=== PATIENT | female | born 1940 | race Caucasian/White ===

== ENCOUNTER 2018-05-02 19:23 | Emergency (ER) | payer MEDICARE, OTHER, SELFPAY ==
[2018-05-02 19:24] VITALS: BP 160/74; PULSE 102; RESP 18; TEMP 36.6; O2SAT 97; BMI 30.9
--- NOTE | 2018-05-02 19:40 | EKG12_ITS ---
Test Reason : Blood Pressure : / mmHG Vent. Rate : 106 BPM Atrial Rate : 106 BPM P-R Int : 130 ms QRS Dur : 086 ms QT Int : 368 ms P-R-T Axes : 045 -04 062 degrees QTc Int : 488 ms Sinus tachycardia with frequent Premature ventricular complexes Septal infarct , age undetermined Abnormal ECG Confirmed by MARVIN BLOCK, TAMIKO ([id number]), slot editor CASEY TUTTLE ([id number]) on 05/07/2018 5:08:33 PM Referred By: CRISTIAN Confirmed By:TAMIKO WONG MD
--- NOTE | 2018-05-02 19:47 | US_ITS ---
STUDY: VENOUS DOPPLER ULTRASOUND - BILATERAL LOWER EXTREMITIES REASON FOR EXAM: Female, 77 years old. Right lower extremity edema. TECHNIQUE: Ultrasound evaluation of the deep vein system to include dan-scale imaging and compression was performed. Dan-scale imaging and Doppler sonographic evaluation, including duplex spectral analysis and qualitative color flow sonography, was performed. COMPARISON: None. FINDINGS: RIGHT LEG Common Femoral Vein: Normal compression, spontaneity and augmentation. Normal color Doppler. Common Femoral Vein/Greater Saphenous Junction: Normal compression, spontaneity and augmentation. Normal color Doppler. Femoral Proximal: Normal compression, spontaneity and augmentation. Normal color Doppler. Femoral Middle: Normal compression, spontaneity and augmentation. Normal color Doppler. Femoral Distal: Normal compression, spontaneity and augmentation. Normal color Doppler. Popliteal Vein: Normal compression, spontaneity and augmentation. Normal color Doppler. Posterior Tibial Vein: Normal compression. Peroneal Vein: Normal compression. LEFT LEG Common Femoral Vein: Normal compression, spontaneity and augmentation. Normal color Doppler. Common Femoral Vein/Greater Saphenous Junction: Normal compression, spontaneity and augmentation. Normal color Doppler. Femoral Proximal: Normal compression, spontaneity and augmentation. Normal color Doppler. Femoral Middle: Normal compression, spontaneity and augmentation. Normal color Doppler. Femoral Distal: Normal compression, spontaneity and augmentation. Normal color Doppler. Popliteal Vein: Normal compression, spontaneity and augmentation. Normal color Doppler. Posterior Tibial Vein: Normal compression. Peroneal Vein: Normal compression US/Venous Duplex Imag/Carlton Extrem IMPRESSION: No demonstrated deep vein thrombosis. Electronically Signed: Corinne Juarez MD at 20:54 EST Tel , Service support ,
[2018-05-02 20:00] LABS: Absolute Lymphocyte Count 1.43 X10^3/ul (0.83-4.51); Absolute Neutrophil Count 2.3 X10^3/uL (2.0-7.7); Basophil# 0.07 X10^3/uL; Basophil% 1.5 % (0-1); Eosinophil# 0.17 X10^3/uL; Eosinophils% 3.7 % (0-5); Hematocrit 41.7 % (37-47); Hemoglobin 13.7 g/dl (12.0-15.0); Lymphocyte # 1.43 X10^3/ul (4.0); Lymphocyte % 31.4 % (19-41); Mean Corp Hgb Conc 32.9 g/gl (32-36); Mean Corpuscular Hgb 31.9 pg (27.0-32.0); Mean Corpuscular Volume 97.2 fL (81-99); Mean Platelet Vol. 10.8 fl (6.2-12.0); Monocyte# 0.54 X10^3/uL; Monocyte% 11.9 % (0-10); Neutrophil # 2.33 X10^3/uL (2.7-7.7); Neutrophil % 51.3 % (47-70); Platelet Count 188 K/mm3 (150-450); RBC Distribution Width CV 15.1 % (11.6-14.6); Red Blood Count 4.29 M/mm3 (4.2-5.4); White Blood Count 4.6 K/mm3 (4.4-11.0)
[2018-05-02 20:01] LABS: POSITIVE COUNT NO; POSITIVE DIFFERENTIAL NO; POSITIVE MORPHOLOGY NO
[2018-05-02 20:22] LABS: Anion Gap 9 (5-15); BUN 12 mg/dL (7-18); Calcium,Total 8.9 mg/dL (8.5-10.1); Chloride 107 mmol/L (98-107); Creatinine, Serum 0.52 mg/dL (0.55-1.02); EST Glomerular Filtration Rate 121 mL/min (>60); Est Glom Filt Rate - Afr Amer 147 mL/min (>60); Estimated Creatinine Clearance 40.21 ml/min; Glucose 94 mg/dL (74-106); Potassium 4.3 mmol/L (3.5-5.1); Sodium Level 142 mmol/L (136-145)
[2018-05-02 20:27] LABS: BNP,B-Type NATRIURETIC PEPTIDE 133.8 pg/mL (0-100)
--- NOTE | 2018-05-02 21:20 | ED.VISSUMM ---
- ER Visit Summary Date of Service: 05/02/18 Chief Complaint: [Leg swelling] History of Present Illness: The patient is a 77 F [presents the emergency room with complaint of swelling in her legs that started 2 or 3 days ago. Patient states that she chronically has some swelling in her legs she is noticed increased swelling to the right leg 2 or 3 days ago. Patient was advised by the nurse at her physician's office to come in and have it evaluated. Patient denies recent travel or surgery. She denies any chest pain or shortness of breath. She denies any trauma to the leg. Patient does have a history of MS. Patient states that she is been urinating normally.] Physical Examination: [HEENT-PERRLA, EOMI. Cranial nerves II through XII grossly intact. TMs clear. Mucous membranes moist. No adenopathy. Cardiovascular-regular and slightly tachycardic. Patient has a 2 out of 6 systolic ejection murmur. Patient has occasional ectopy noted. Lungs-clear to auscultation, chest wall stable without crepitus or subcu emphysema Abdomen-normoactive bowel sounds, soft, nontender, no rebound or rigidity, no peritoneal signs. Extremities-intact ?4, normal range of motion, normal pulses, atraumatic. Patient does have +3 edema of the right lower extremity to about mid thigh and also +2 edema of the left lower extremity just below the knee. Patient has no evidence of cellulitis.] Test Results: [EKG obtained arrival showed a sinus tachycardia with a ventricular rate of 106 bpm with occasional PVCs. CBC with differential showed a white count of 4.6, hemoglobin 13.7, hematocrit 42, platelets 188. Chemistries unremarkable. BUN was 12 and creatinine 0.52. Troponin is less than 0.015. BNP was 133. Venous Dopplers of both lower extremities were negative for DVT.] Emergency Department Course and Treatment: [] Treatment Plan: [Patient advised to follow-up with primary care physician within next 3-5 days] Disposition: [Discharged home in stable condition] Impression: [Leg edema suspect venous insufficiency] This note was generated with [employer] software. It may contain incorrect words, spelling, and punctuation that were not noted in review of the chart prior to signing ED Disposition - Plan for ED Patient: Referrals: Noemy Hoskins MD [Primary Care Provider] -
--- NOTE | 2018-05-02 21:22 | ED.DEP ---
ED Disposition - Plan for ED Patient: Instructions: ED Leg Swelling Bilateral Referrals: Noemy Hoskins MD [Primary Care Provider] - 3-5 Days
[2018-05-02 21:38] VITALS: BP 152/95; PULSE 110; RESP 18; O2SAT 96
== END 2018-05-02 21:39 | disposition home or self-care (01) ==
LOC: ED 20:43
PROVIDERS: Emergency Provider Emergency Medicine; Family Provider Internal Medicine; PCP Internal Medicine
DX: R60.0 Localized edema (principal); G35 Multiple sclerosis; Z79.899 Other long term (current) drug therapy
CPT/HCPCS: 80048; 83880; 84484; 85025; 93005; 93970; 99284; A4216

== ENCOUNTER → 2018-05-11 07:13 | Outpatient (CLI) | payer MEDICARE, OTHER, SELFPAY ==
[2018-05-02 19:24] VITALS: BMI 30.9
--- NOTE | 2018-05-11 07:21 | BI_ITS ---
MAMMOGRAPHY - BILATERAL SCREENING REASON FOR EXAM: Female, 77 years old. Routine annual screening examination. PERTINENT HISTORY: Non-contributory. TECHNIQUE: Digital bilateral breast alvarado (3D mammographic acquisition) in the CC and MLO projections. 2-D mediolateral oblique (MLO) and craniocaudad (CC) views of both breasts were obtained. CAD: Full Field Digital Mammography with Computer Added Detection was performed. COMPARISON: Comparison is made with prior study dated December 05, 2016 and December 01, 2015. FINDINGS: Breast Composition: There are scattered areas of fibroglandular density. There are no dominant masses or suspicious calcifications. No other significant abnormalities are identified. There has been no significant change since the prior study. BI/SCREENING MAMM (CAD), BILAT IMPRESSION: Stable bilateral screening mammogram. Yearly follow-up mammogram recommended. (A) ASSESSMENT CATEGORY: BIRADS Category 1: Negative. A letter regarding these results will be sent to the patient by the facility within 30 days. Approximately 10% of breast cancers are not detected by mammography. A normal mammogram should not delay biopsy of a clinically suspicious abnormality. [id number] Electronically Signed: Cisco Wallace, at 10:12 EST , Service support ,
== END ==
PROVIDERS: Family Provider Internal Medicine; PCP Internal Medicine; Visit Provider Internal Medicine
DX: Z12.31 Encounter for screening mammogram for malignant neoplasm of breast (principal)
CPT/HCPCS: 77063; 77067

== ENCOUNTER 2019-01-28 08:43 | Inpatient (IN) | payer MEDICARE, OTHER, SELFPAY ==
[2019-01-28] VITALS (9 sets, daily range): BP systolic 103–151; BP diastolic 37–88; PULSE 112–133; RESP 15–20; TEMP 36.6–37.7; O2SAT 92–98; BMI 30.5; BMI 30.4
--- NOTE | 2019-01-28 09:00 | ED.DCSUM_ITS ---
History of Present Illness Chief Complaint: Other, Pain/Inj Informant: Patient, Family Onset: Yesterday Current Severity: Moderate Maximum Severity: Moderate Narrative: Patient has a history of multiple sclerosis. She has left facial droop right arm paralysis and right leg paralysis. These are chronic. However starting yesterday she has been unable to ambulate, she normally gets around with a walker but now her left leg is weak and her right leg is weaker than normal. She has no recent fever chills dysuria cough or congestion no recent head injury, she is complaining of pain everywhere, however more specifically it is in her legs. She tells me this is consistent with an MS flare. Past Medical History - Allergies and Home Meds Allergies/Adverse Reactions: Allergies aspirin Adverse Reaction (Verified 01/28/19 08:47) Other pt states she is not to take aspirin due to being on methotrexate Past Medical History: - - Multiple sclerosis Lives: Spouse/ Significant Other Smoking Status: Never smoker Review of Systems All systems negative except as indicated General: Denies: Fever Eyes: Denies: Visual changes - bilaterally ENT: Reports: - - Dry mouth. Denies: Rhinorrhea, Sore throat Cardiovascular: Denies: Chest pain, Palpitations Respiratory: Denies: Dyspnea, Cough Gastrointestinal: Denies: Abdominal pain, Nausea Musculoskeletal: Reports: Myalgias, Extremity Pain. Denies: Neck pain, Back pain Skin: Denies: Rash, Abscess Neurological: Reports: Weakness, Parasthesia. Denies: Headache Endocrine: Denies: Polyuria, Polydipsia Hematologic: Denies: Easy bruising Allergy: Denies: Uticaria Physical Exam Vital Signs/Narrative: Vital Signs Temp Pulse Resp BP Pulse Ox 01/28/19 08:43 99.0 F 126 H 20 H 139/47 H 93 General: - - She appears in some distress she is oriented x3 but confused about minor details. Head: Normocephalic Eyes: Negative for: Pale conjunctiva ENT: Dry mucous membranes, - - Left facial droop Neck: Supple Cardiovascular: Regular rate, Regular rhythm Respiratory: No distress, CTA bilaterally Abdomen: Soft, Nontender Back: Nontender, Normal Inspection Extremities: - - Lateral lower extremity edema, she has minimal movement in her l right lower extremity but she does have some movement in the left lower extremity although she cannot hold it against gravity. Neurological: Alert, - - Left facial droop, right arm and right leg weakness as well as left leg weakness. Psychological: Normal affect Diagnostic/Tx/Re-eval Chest X-Ray - ED: 1 View - Medical Decision Making It is clear that the patient has an infectious etiology to her symptoms, she has leukocytosis a urinary tract infection tachycardia and lactic acidosis. She meets criteria for severe sepsis. I discussed the patient with neurology at [facility], no further treatment is recommended for her MS. The recommendation is to treat her sepsis. I will admit to the hospitalist. Severe sepsis protocol was followed by me as far as orders. Admit stable condition - Critical Care Time Critical care time (excluding procedures): 30-74 minutes, Discussing w/Patient &/or Family/Screen Tender Helper, Discussing w/Consultants, Performing Direct Patient Care at Bedside ED Disposition - Plan for ED Patient: Disposition: Acute Care Hospital [facility] Diagnosis: Severe sepsis, UTI (urinary tract infection)
--- NOTE | 2019-01-28 09:00 | RAD_ITS ---
STUDY: X-RAY CHEST REASON FOR EXAM: Female, 78 years old. Chest pain/shortness of breath. TECHNIQUE: Single AP portable view of the chest. COMPARISON: None. FINDINGS: EKG electrodes are seen. Minimal increased markings at the left lung base suggestive of atelectasis. There is no demonstrated pleural abnormality. There is borderline cardiomegaly. Normal mediastinum and terri. Normal visualized pulmonary arteries. There is atherosclerotic calcification of the aortic arch with tortuosity. There are diffuse degenerative changes of the visualized thoracic spine. There is degenerative osteoarthritis of the bilateral shoulders. There is no demonstrated abnormality of the visualized soft tissue structures of the upper abdomen. RAD/Chest 1 View (Portable) IMPRESSION: Borderline cardiomegaly. Minimal increased markings at the left lung base suggestive of atelectasis. Electronically Signed: Cisco Wallace, at 9:28 EST , Service support ,
[2019-01-28 09:05] LABS: Absolute Lymphocyte Count 0.42 X10^3/uL (0.83-4.51); Basophil# 0.07 X10^3/uL; Basophil% 0.4 % (0-1); Differential Indicated SCAN CRITERIA MET; Eosinophil# 0.04 X10^3/uL; Eosinophils% 0.2 % (0-5); Hematocrit 41.5 % (37-47); Hemoglobin 13.7 g/dL (12.0-15.0); Lymphocyte # 0.42 X10^3/ul (4.0); Lymphocyte % 2.6 % (19-41); Mean Corpuscular Hgb 32.9 pg (27.0-32.0); Mean Corpuscular Volume 99.5 fL (81-99); Mean Platelet Vol. 10.9 fl (6.2-12.0); Monocyte# 1.38 X10^3/uL; Monocyte% 8.6 % (0-10); NRBC Flagged by Analyzer 0 % (0-5); Neutrophil # 14.03 X10^3/uL (2.7-7.7); POSITIVE DIFFERENTIAL YES; Platelet Count 149 K/mm3 (150-450); RBC Distribution Width CV 15.7 % (11.6-14.6); RBC Distribution Width SD 57.4 fl (35.1-43.9); Red Blood Count 4.17 M/mm3 (4.2-5.4); White Blood Count 16.1 K/mm3 (4.4-11.0)
[2019-01-28 09:22] LABS: AST(SGOT) 27 U/L (15-37); Alanine Aminotransfer ALT/SGPT 23 U/L (13-56); Albumin, Serum 3.6 g/dL (3.2-5.0); Alkaline Phosphatase 81 U/L (45-117); Anion Gap 8 (5-15); BUN 31 mg/dL (7-18); BUN/Creat Ratio 25.2 RATIO (10-20); Calcium,Total 8.9 mg/dL (8.5-10.1); Chloride 106 mmol/L (98-107); Creatinine, Serum 1.23 mg/dL (0.55-1.02); EST Glomerular Filtration Rate 45 mL/min (>60); Est Glom Filt Rate - Afr Amer 55 mL/min (>60); Globulin 3.6 g/dL (2.2-4.2); Glucose 100 mg/dL (74-106); Potassium 3.7 mmol/L (3.5-5.1); Protein, Total 7.2 g/dL (6.4-8.2); Sodium Level 141 mmol/L (136-145)
[2019-01-28 10:02] LABS: Mucous, Urine 0 SEEN /hpf (<or=2+)
[2019-01-28 10:08] LABS: Color, Urine Amber (Yellow); Glucose, Dipstick Normal (Normal); Ketone-Dipstick 5 mg/dl (Negative); Leukocyte Esterase-Dipstick 100 /ul (Negative); Nitrite-Dipstick Negative (Negative); Occult Blood-Urine 250 /ul (Negative); Protein-Dipstick 100 mg/dl (Negative); Specific Gravity, Urine 1.015 (1.002-1.030); Urine Bilirubin Dipstick Negative (Negative); Urine Clarity Sl. Cloudy (Clear); Urine Urobilinogen Normal (Normal)
[2019-01-28 10:11] LABS: Red Blood Cells-Urine 25-50 SEEN /hpf (0-5); White Blood Cells 10-25 SEEN /hpf (0-5)
[2019-01-28 10:12] LABS: Bacteria 2+ /hpf (None Seen); Squamous Epithelial Cells - UA 0-5 SEEN /hpf (5-10)
[2019-01-28] MEDS: 0.9% Normal Saline 1,000 ML 1000 ML IV (11:05)
[2019-01-28] MEDS: 0.9% Normal Saline 1,000 ML 999 ML IV ×3 (11:05→13:53)
[2019-01-28 11:18] LABS: Lactic Acid 2.2 mmol/L (0.4-2.0)
--- NOTE | 2019-01-28 11:22 | ED.RN ---
lactic acid 2.2 called from the lab dr rivera aware
--- NOTE | 2019-01-28 11:25 | HP.PCM_ITS ---
History of Present Illness Date of Admission: 01/28/19 Chief Complaint: Generalized pain The patient is a 78 year old F with a past medical history significant for multiple sclerosis. She was admitted through the ED on 01/28/2019 with a complaint of generalized pain which started a few days ago she had associated weakness. She does have chronic right-sided weakness. She however felt generally weaker than usual. Admitted to having burning with urination and frequent urination but denied any fever or chills, any nausea vomiting or diarrhea. Review of systems is otherwise negative. She came into the ED where vitals were significant for temperature of 99.5 with pulse rate of 124 and respiratory rate of 17. Blood pressure was 148/55. Chemistry showed creatinine of 1.23 and lactic acid of 2.2 and white cell count was 16. UA was positive for UTI and chest x-ray showed borderline cardiomegaly with minimal increased markings of the left lung base suggestive of atelectasis. She has been admitted to be managed for sepsis due to UTI. [] Past Medical History Allergies aspirin Adverse Reaction (Verified 01/28/19 08:47) Other pt states she is not to take aspirin due to being on methotrexate Home Medications: Ambulatory Orders Medication Instructions Recorded Calcium Carbonate/Vitamin D3 1 tab PO DAILY 05/02/18 [Calcium 600 + Vit D Tablet] Cholecalciferol (Vitamin D3) 2,000 unit PO DAILY 05/02/18 [Vitamin D3] Methotrexate Sodium [Methotrexate] 6 tab PO FLORES 05/02/18 [place]-3 Fatty Acids [Fish Oil] 500 mg PO DAILY 05/02/18 Vit C/Vit E AC/Lut/Copper/Zinc 2 each PO BID 05/02/18 [Preservision Lutein Softgel] Cranberry Fruit [Cranberry] 400 mg PO DAILY 01/28/19 Psychiatric History: No pertinent psych hx SUPERVISOR ROVING History: No pertinent SUPERVISOR ROVING history Lives: Spouse/ Significant Other Smoking Status: Never smoker Alcohol: None Drugs: None - *Family History Maternal History Items: No pertinent history Review of Systems Constitutional: Reports: Malaise, Weakness, Fatigue. Denies: Chills, Fever, Weight Change Eyes: Denies: Blurred vision HEENT: Denies: Head Aches, Sinus Congestion, Sinus Drainage Cardiovascular: Denies: Chest Pain, Palpitations Respiratory: Denies: Cough, Shortness of breath at rest, Sputum production Gastrointestinal: Denies: Abdominal Pain, Nausea, Vomiting Genitourinary: Reports: Dysuria, Frequency. Denies: Incontinence, Urgency Musculoskeletal: Denies: Joint Pain, Joint Tenderness Skin: Denies: Rash, Wounds Neurological: Reports: Focal weakness - right sided weakness, which is chronic. Denies: Numbness, Tingling Psychiatric: Denies: Anxiety, Depression, Homicidal Ideations, Suicidal Ideations Hematologic/ Lymphatic: Denies: Easy Bruising, Easy Bleeding VTE Information - Inpt Only VTE Present on Admission: No VTE Pharm Prophylaxis ordered?: Yes Patient Problems: Active and Suspected Problems Severe sepsis (Acute) UTI (urinary tract infection) (Acute) - Physical Exam Vitals/I&O's: Vital Signs Temp Pulse Resp BP Pulse Ox 99.5 F H 124 H 17 148/55 H 94 01/28/19 11:14 01/28/19 11:14 01/28/19 11:14 01/28/19 11:14 01/28/19 11:14 Oxygen Delivery Method Room Air Weight: 178 lb 2.136 oz Body Mass Index (BMI) 30.5 General: Alert, Oriented x3, Cooperative, No apparent distress HEENT: Atraumatic, PERRLA, EOMI, Normocephalic Oral: Dry Mucosa Neck: Supple, No JVD, Negative Carotid Bruits Lungs: Clear to auscultation, Normal air movement, No rhonchi, No wheeze Cardiovascular: Regular rate, Regular Rhythm, Normal S1, Normal S2, No murmurs Abdomen: Bowel Sounds Present, Soft, Non Tender, Non-Distended, No Hepato- splenomegaly Extremities: No clubbing, No cyanosis, Capillary Refill Less than 3 Seconds, - - bilateral LE edema, R>L, which is chronic Skin: No rashes, No breakdown Musculoskeletal: No Tenderness to Palpation of Joints or Extremities Lymphatic: No Cervical, Supraclavicular, or Inguinal Adenopathy Neurological: Cranial nerves II-XII grossly intact, - - power in RLE and RUE is 1/5; power in LLE is ~ 3/5, power in LUE is 5/5; this is all chronic, from MS Psych/Mental Status: Normal Affect, Appropriate, Alert and oriented to time, place, person, mood and affect Laboratory Results 01/28/19 08:50: WBC 16.1 H, RBC 4.17 L, Hgb 13.7, Hct 41.5, MCV 99.5 H, MCH 32.9 H, MCHC 33.0, RDW Std Deviation 57.4 H, RDW Coeff of Luanne 15.7 H, Plt Count 149 L, MPV 10.9, Immature Gran % (Auto) 1.200 H, Neut % (Auto) 87.0 H, Lymph % (Auto) 2.6 L, Walker % (Auto) 8.6, Eos % (Auto) 0.2, Baso % (Auto) 0.4, Absolute Neuts (auto) 14.0 H, Absolute Lymphs (auto) 0.42 L, Nucleated RBC % 0, Differential Comment COMMENT 01/28/19 08:50: Sodium 141, Potassium 3.7, Chloride 106, Carbon Dioxide 27.0, Anion Gap 8, BUN 31 H, Creatinine 1.23 H, Estim Creat Clear Calc 33.60, Est GFR (MDRD) Af Amer 55 L, Est GFR (MDRD) Non-Af 45 L, BUN/Creatinine Ratio 25.2 H, Glucose 100, Calcium 8.9, Total Bilirubin 1.00, AST 27, ALT 23, Alkaline Phosphatase 81, Troponin I < 0.015, Total Protein 7.2, Albumin 3.6, Globulin 3.6, Albumin/Globulin Ratio 1.0 01/28/19 08:56: Lactic Acid 2.2 H 01/28/19 09:45: Urine Color Allyssa, Urine Clarity Sl. Cloudy, Urine pH 8.0, Ur Specific [place] 1.015, Urine Protein 100 H, Urine Glucose (UA) Normal, Urine Ketones 5 H, Urine Occult Blood 250 H, Urine Nitrite Negative, Urine Bilirubin Negative, Urine Urobilinogen Normal, Ur Leukocyte Esterase 100 H, Urine RBC 25- 50 SEEN, Urine WBC 10-25 SEEN, Ur Squamous Epith Cells 0-5 SEEN, Urine Bacteria 2+, Urine Mucus 0 SEEN Diagnostic Data Chest X-Ray 01/28/19 09:00 IMPRESSION: Borderline cardiomegaly. Minimal increased markings at the left lung base suggestive of atelectasis. Electronically Signed: Cisco Wallace, at 9:28 EST , Service support , Current Medications Sodium Chloride () 1,000 mls @ 999 mls/hr IV .Q1H1M JODY; Protocol Stop: 01/28/19 12:55 Last Admin: 01/28/19 11:05 Dose: 999 mls/hr Documented by: Vancomycin HCl 1,250 mg/ (Sodium Chloride) 275 mls @ 167 mls/hr IV X1 ONE Stop: 01/28/19 12:38 Assessment/Plan All Active Problems Severe sepsis (Acute) UTI (urinary tract infection) (Acute) 78-year-old female admitted with complaint of weakness and found to have sepsis due to UTI. 1. Sepsis due to UTI * admit to PCU with telemetry * SIRS criteria is 2/4 (tachycardia and leucocytosis), with a mild fever of 99.5F * UA : 2+ bacteria and 10-25 wbc; lactic acid was 2.2 * given IV vancomycin in ED; will start on IV ceftriaxone * hydrate with iVF NS * blood and urine cultures * 2. FOZIA: Creatinine is 1.23 with baseline of 0.52. Will hydrate with IV fluid and monitor. 3. Lactic acidosis: Lactic acid was 2.2. Will hydrate with IV fluids and repeat per sepsis protocol. 4. History of multiple sclerosis: * On methotrexate 6 tablets weekly on Sundays. * ED doctor discussed with her neurologist up in [facility], Dr. Garrett. * He recommended that she continue with her current treatment and did not recommend any adjustments to her medication. * patient's neurologic status is at baseline; if it worsens, will consult neurology * DVT prophylaxis: lovenox CODE STATUS: Full code * Patient counseled extensively about different types of CODE STATUS including full code, DNR CCA and DNR CCA. Patient elects to be full code. Total [id number] time 16 minutes. Code Visit Inpatient E&M: 15530 Init Hosp L3 Procedures: 93936 Advncd Care Plan 30 Min
[2019-01-28 14:54] LABS: Reflex Lactate? Y
--- NOTE | 2019-01-28 15:03 | CASEMGMT ---
Patient has advance directives and she is aware they are not on file at [facility]. Keiry PENA MSW
--- NOTE | 2019-01-28 15:04 | CASEMGMT ---
Patient has advance directives and she is aware they are not on file at [facility]. Keiry PENA MSW
[2019-01-28] MEDS: oxyCODONE 5 MG Tablet PO (15:14)
[2019-01-28] MEDS: 0.9% Normal Saline 1,000 ML 150 ML IV ×2 (15:47→22:56)
[2019-01-28] MEDS: Enoxaparin 40 MG/0.4 ML Syringe SC (15:53)
[2019-01-28 19:23] LABS: Reflex Lactate? Y
[2019-01-28] MEDS: Nystatin Powder 15gm Bottle 1 APPLIC TOPICAL (21:12)
[2019-01-28] MEDS: Menthol/Lanolin/Calamine/Znox 113 GM Tube 1 APPLIC TOPICAL (21:12)
[2019-01-28 21:26] LABS: Lactic Acid 1.4 mmol/L (0.4-2.0)
[2019-01-29] VITALS (11 sets, daily range): BP systolic 123–161; BP diastolic 48–76; PULSE 98–118; RESP 18–20; TEMP 36.9–37.6; O2SAT 93–97
[2019-01-29 05:45] LABS: Absolute Lymphocyte Count 0.44 X10^3/uL (0.83-4.51); Absolute Neutrophil Count 7.2 X10^3/uL (2.0-7.7); Basophil# 0.05 X10^3/uL; Basophil% 0.6 % (0-1); Eosinophil# 0.03 X10^3/uL; Eosinophils% 0.4 % (0-5); Hematocrit 33.9 % (37-47); Hemoglobin 11.1 g/dL (12.0-15.0); Lymphocyte # 0.44 X10^3/ul (4.0); Lymphocyte % 5.2 % (19-41); Mean Corp Hgb Conc 32.7 g/dL (32-36); Mean Corpuscular Volume 97.7 fL (81-99); Mean Platelet Vol. 11.2 fl (6.2-12.0); Monocyte# 0.72 X10^3/uL; Monocyte% 8.5 % (0-10); NRBC Flagged by Analyzer 0 % (0-5); Neutrophil # 7.19 X10^3/uL (2.7-7.7); Neutrophil % 84.8 % (47-70); POSITIVE DIFFERENTIAL YES; Platelet Count 125 K/mm3 (150-450); RBC Distribution Width CV 15.4 % (11.6-14.6); RBC Distribution Width SD 54.6 fl (35.1-43.9); Red Blood Count 3.47 M/mm3 (4.2-5.4); White Blood Count 8.5 K/mm3 (4.4-11.0)
[2019-01-29] MEDS: oxyCODONE 5 MG Tablet PO ×2 (05:54→21:52)
[2019-01-29 06:27] LABS: Anion Gap 8 (5-15); BUN 20 mg/dL (7-18); BUN/Creat Ratio 29.2 RATIO (10-20); Calcium,Total 7.3 mg/dL (8.5-10.1); Chloride 107 mmol/L (98-107); Creatinine, Serum 0.68 mg/dL (0.55-1.02); EST Glomerular Filtration Rate 89 mL/min (>60); Est Glom Filt Rate - Afr Amer 107 mL/min (>60); Estimated Creatinine Clearance 41.33 ml/min; Glucose 86 mg/dL (74-106); Potassium 3.3 mmol/L (3.5-5.1); Sodium Level 137 mmol/L (136-145)
[2019-01-29 06:43] LABS: Differential Indicated SCAN CRITERIA MET
[2019-01-29] MEDS: Ondansetron 4 MG/2 ML Vial IV (08:01)
[2019-01-29] MEDS: Acetaminophen 325 MG Tablet 650 MG PO ×2 (08:03→19:57)
[2019-01-29] MEDS: Nystatin Powder 15gm Bottle 1 APPLIC TOPICAL ×2 (08:59→21:52)
[2019-01-29] MEDS: Menthol/Lanolin/Calamine/Znox 113 GM Tube 1 APPLIC TOPICAL ×2 (08:59→21:53)
[2019-01-29] MEDS: Enoxaparin 40 MG/0.4 ML Syringe SC (09:03)
[2019-01-29] MEDS: Multivitamin (Healthy Eyes) Capsule 2 CAP PO ×2 (09:03→21:52)
--- NOTE | 2019-01-29 11:34 | NURSING ---
Was asked by nursing to assess under bilateral breasts for redness. no redness noted under the left breast. there is a small patch of redness noted under the right breast. pt is already getting nystatin powder. did discuss with patient that she can use some cotton cloth such as a pillow case under breasts as needed to assist in keeping areas dry. states that she normally only has issues in the summer time. no need for wound care at this time. continue with the nystatin powder as ordered. can place pillow cases as well if needed.
--- NOTE | 2019-01-29 11:47 | PN_ITS ---
Patient Problems: Active and Suspected Problems Severe sepsis (Acute) UTI (urinary tract infection) (Acute) Subjective: Patient seen and examined. She feels much better today and has no complaints. She denies any fever chills, nausea vomiting though she still admits to mild suprapubic pain with urination. Review of systems otherwise negative. Labs and vitals reviewed. White cell count noted to have trended down to 8.5 from 16.1. Vitals/I&O's: Vital Signs Temp Pulse Resp BP Pulse Ox 98.4 F 100 18 123/48 H 96 01/29/19 08:58 01/29/19 10:59 01/29/19 08:58 01/29/19 08:58 01/29/19 08:58 Oxygen Delivery Method Room Air Weight: 178 lb 2.136 oz Body Mass Index (BMI) 30.4 Intake and Output for Last 24 Hours 01/27/19 01/28/19 01/29/19 23:59 23:59 23:59 Intake Total 6245 / 6245 1205 / 1205 Output Total 400 / 400 350 / 350 Balance 5845 / 5845 855 / 855 General: Alert, Oriented x3, Cooperative, No apparent distress HEENT: Atraumatic, PERRLA, EOMI, Normocephalic Oral: Dry Mucosa Neck: Supple, No JVD, Negative Carotid Bruits Lungs: Clear to auscultation, Normal air movement, No rhonchi, No wheeze Cardiovascular: Regular rate, Regular Rhythm, Normal S1, Normal S2, No murmurs Abdomen: Bowel Sounds Present, Soft, Non Tender, Non-Distended, No Hepato- splenomegaly Extremities: No clubbing, No cyanosis, Capillary Refill Less than 3 Seconds, - - bilateral LE edema, R>L, which is chronic Skin: No rashes, No breakdown Musculoskeletal: No Tenderness to Palpation of Joints or Extremities Lymphatic: No Cervical, Supraclavicular, or Inguinal Adenopathy Neurological: Cranial nerves II-XII grossly intact, - - power in RLE and RUE is 1/5; power in LLE is ~ 3/5, power in LUE is 5/5; this is all chronic, from MS Psych/Mental Status: Normal Affect, Appropriate, Alert and oriented to time, place, person, mood and affect Laboratory Results 01/28/19 15:10: Lactic Acid 2.0 01/28/19 20:40: Lactic Acid 1.4 01/29/19 05:15: WBC 8.5, RBC 3.47 L, Hgb 11.1 L, Hct 33.9 L, MCV 97.7, MCH 32.0, MCHC 32.7, RDW Std Deviation 54.6 H, RDW Coeff of Luanne 15.4 H, Plt Count 125 L, MPV 11.2, Immature Gran % (Auto) 0.500, Neut % (Auto) 84.8 H, Lymph % (Auto) 5.2 L, [place] % (Auto) 8.5, Eos % (Auto) 0.4, Baso % (Auto) 0.6, Absolute Neuts (auto) 7.2, Absolute Lymphs (auto) 0.44 L, Nucleated RBC % 0, Differential Comment 01/29/19 05:15: Sodium 137, Potassium 3.3 L, Chloride 107, Carbon Dioxide 22.0, Anion Gap 8, BUN 20 H, Creatinine 0.68, Estim Creat Clear Calc 41.33, Est GFR (MDRD) Af Amer 107, Est GFR (MDRD) Non-Af 89, BUN/Creatinine Ratio 29.2 H, Gluc ose 86, Calcium 7.3 L Diagnostic Data Chest X-Ray 01/28/19 09:00 IMPRESSION: Borderline cardiomegaly. Minimal increased markings at the left lung base suggestive of atelectasis. Electronically Signed: Cisco Rodrigo, at 9:28 EST , Service support , Current Medications Acetaminophen (Tylenol) 650 mg PO Q6H PRN PRN PRN Reason: Pain Score 1-3/Temp > 100.7 F Last Admin: 01/29/19 08:03 Dose: 650 mg Documented by: Calamine/Phenol (Calmoseptine Ointment) 1 applic TOPICAL BID JODY; Protocol Last Admin: 01/29/19 08:59 Dose: 1 applicatio Documented by: Calcium/Vitamin D (Os-Max 500mg + D) 1 tablet PO DAILY@1200 JODY Cholecalciferol (Vitamin D) 2,000 unit PO DAILY COUNTS INCLUDE 234 BEDS AT THE [facility] Last Admin: 01/29/19 09:03 Dose: 2,000 unit Documented by: Dextrose (D50w Syringe) 0 gm IV X1 PRN; Protocol PRN Reason: Hypoglycemia Enoxaparin Sodium (Lovenox) 40 mg SC DAILY@1000 COUNTS INCLUDE 234 BEDS AT THE [facility] Last Admin: 01/29/19 09:03 Dose: 40 mg Documented by: Glucagon () 1 mg IM .X1 PRN PRN Reason: Hypoglycemia Ceftriaxone Sodium 2 gm/ (Sodium Chloride) 50 mls @ 100 mls/hr IV Q24 COUNTS INCLUDE 234 BEDS AT THE [facility] Last Infusion: 01/29/19 09:48 Dose: Infused Documented by: Sodium Chloride () 250 mls @ 15 mls/hr IV .[id number] PRN PRN Reason: Saline Flush Methotrexate (Methotrexate) 15 mg PO Bejarano@1000 COUNTS INCLUDE 234 BEDS AT THE [facility] Multivitamins/Minerals (Healthy Eyes) 2 capsule PO BID COUNTS INCLUDE 234 BEDS AT THE [facility] Last Admin: 01/29/19 09:03 Dose: 2 capsule Documented by: Nystatin (Mycostatin Powder) 1 applic TOPICAL BID COUNTS INCLUDE 234 BEDS AT THE [facility]; Protocol Last Admin: 01/29/19 08:59 Dose: 1 applicatio Documented by: Ondansetron HCl (Zofran) 4 mg IV Q8H PRN PRN PRN Reason: NAUSEA/VOMITING Last Admin: 01/29/19 08:01 Dose: 4 mg Documented by: Oxycodone HCl (Oxyir) 5 mg PO Q6H PRN PRN PRN Reason: Pain Score 6-10/10 Last Admin: 01/29/19 05:54 Dose: 5 mg Documented by: Sodium Chloride () 10 - 40 ml IV UD PRN PRN Reason: SALINE FLUSH STROKE Vital Signs/Narrative: Vital Signs Temp Pulse Resp BP Pulse Ox 01/29/19 10:59 100 01/29/19 08:58 98.4 F 108 H 18 123/48 H 96 Medical Necessity - Tobacco Use Smoking Status: Never smoker Assessment/Plan All Active Problems Severe sepsis (Acute) UTI (urinary tract infection) (Acute) 78-year-old female admitted with complaint of weakness and found to have sepsis due to UTI. 1. Sepsis due to UTI * wbc has trended down today * temperature has trended down and was 98.4F today * on IV ceftriaxone * blood and urine cultures pending * 2. FOZIA: resolved. Cr is down to 0.68. 3. Hypokalemia. Potassium is 3.3. Will replace and monitor. 4. Lactic acidosis: resolved. lactic acid went down to 1.4 with IVF hydration. 5. History of multiple sclerosis: * has residual right sided weakness. * On methotrexate 6 tablets weekly on Sundays. * to follow up with her neurologist at [facility] upon discharge. * DVT prophylaxis: lovenox CODE STATUS: Full code * Code Visit Inpatient E&M: 58741 Subs Hosp L2
[2019-01-29] MEDS: Calcium Carb/Vitamin D 1 TABLET Tablet PO (12:47)
--- NOTE | 2019-01-29 12:57 | CASEMGMT ---
Assessment- SW met with patient. Introduced self and role at [facility]. Patient agreed to assessment. Living situation- Patient lives with her in a 1 level home with a ramp entrance. PCP: Dr Hoskins Specialists: Dr Hawk [facility] for patient's MS Pharmacy: [facility] D[facility]: grab bars, walk in shower, raised toilet seat, and shower chair ADL's/IADL's: Patient usually uses her walker to get around. She normally bathes herself. She does make sure her is home when she bathes. She manages her own medications. Her cooks, cleans, and drives. Past SNF/rehab: None Past HH: None LW: Yes. She is aware it is not on file at [facility]. POA: Yes. She is aware it is not on file at [facility]. Patient said she has been doing well at home until this episode where she could not stand up. She said she and her are getting older and they are thinking about getting extra help. SW told her about home health and what insurance covers. SW did let her know she would have to be homebound in order to qualify for home health. She said she goes to the [facility] and works with a first aid trainer that knows all about MS. ALEJANDRA also told her that we have a private duty list we could give them if they would like. ALEJANDRA told her RN WOODY and ALEJANDRA will follow and see what therapy recommends. Plan: Await PT/OT evaluations. Keriy PENA MSW
--- NOTE | 2019-01-29 15:16 | CASEMGMT ---
Therapy saw patient and she did not do well with therapy. They are recommending SNF if patient does not improve. ALEJANDRA went back to the room and spoke with patient, her , and her personal driver. ALEJANDRA explained that right now if she would be discharged today therapy is recommending that she go to a [place] [facility] [place] for short term rehab before going home. Patient's said if that is what she needs then we will do that. He asked about future planning as he knows her MS is going to get worse and he wants to be prepared. ALEJANDRA gave them a list of private duty agencies and local SNF's. She was okay with SW putting her name on the TCU list. ALEJANDRA will follow and assist with discharge planning. Plan: Possibly TCU or another SNF Keiry PENA MSW
[2019-01-29] MEDS: 0.9% Saline Lock 10 ML Syringe IV (22:02)
[2019-01-30] VITALS (12 sets, daily range): BP systolic 134–153; BP diastolic 69–89; PULSE 92–106; RESP 16–18; TEMP 36.4–37.1; O2SAT 94–97
[2019-01-30] MEDS: 0.9% Saline Lock 10 ML Syringe IV (02:08)
[2019-01-30] MEDS: Ondansetron 4 MG/2 ML Vial IV (02:08)
[2019-01-30] MEDS: oxyCODONE 5 MG Tablet PO (04:50)
[2019-01-30] MEDS: Multivitamin (Healthy Eyes) Capsule 2 CAP PO ×2 (08:46→22:27)
[2019-01-30] MEDS: Calcium Carb/Vitamin D 1 TABLET Tablet PO (08:47)
[2019-01-30] MEDS: Nystatin Powder 15gm Bottle 1 APPLIC TOPICAL ×2 (08:47→22:27)
[2019-01-30] MEDS: Enoxaparin 40 MG/0.4 ML Syringe SC (08:48)
[2019-01-30] MEDS: Menthol/Lanolin/Calamine/Znox 113 GM Tube 1 APPLIC TOPICAL ×2 (08:48→22:28)
--- NOTE | 2019-01-30 09:36 | CASEMGMT ---
SW received a call from [facility] and she will have a bed for patient. ALEJANDRA spoke with patient, her and son per their request. They asked questions about insurance and coverage for nursing homes, home health etc. ALEJANDRA explained Medicare coverage for snf and home health. They do want patient to go to TCU. ALEJANDRA let them know TCU will have a bed for patient and she will likely go tomorrow. ALEJANDRA also told them there is a Lump Receiver in the TCU that helps with discharge planning. They thanked ALEJANDRA for answering questions. Plan: [facility] TCU under skilled level of care. Keiry PENA MSW
--- NOTE | 2019-01-30 11:45 | PCM.PN.HOSP ---
Patient Problems: Active and Suspected Problems Severe sepsis (Acute) UTI (urinary tract infection) (Acute) Subjective: Patient seen and examined. She complains of feeling unwell today and feels nauseous. She denies any lightheadedness or dizziness, palpitations, abdominal pain, diarrhea vomiting. Review of symptoms otherwise negative. Labs and vitals reviewed. Vitals/I&O's: Vital Signs Temp Pulse Resp BP Pulse Ox 98.7 F 98 18 153/69 H 96 01/30/19 08:53 01/30/19 11:00 01/30/19 08:53 01/30/19 08:53 01/30/19 08:53 Oxygen Delivery Method Room Air Weight: 178 lb 2.136 oz Body Mass Index (BMI) 30.4 Intake and Output for Last 24 Hours 01/28/19 01/29/19 01/30/19 23:59 23:59 23:59 Intake Total 6245 / 6245 2245 / 2245 170 / 170 Output Total 400 / 400 1100 / 1100 200 / 200 Balance 5845 / 5845 1145 / 1145 -30 / -30 General: Alert, Oriented x3, Cooperative, No apparent distress HEENT: Atraumatic, PERRLA, EOMI, Normocephalic Oral: Dry Mucosa Neck: Supple, No JVD, Negative Carotid Bruits Lungs: Clear to auscultation, Normal air movement, No rhonchi, No wheeze Cardiovascular: Regular rate, Regular Rhythm, Normal S1, Normal S2, No murmurs Abdomen: Bowel Sounds Present, Soft, Non Tender, Non-Distended, No Hepato-splenomegaly Extremities: No clubbing, No cyanosis, Capillary Refill Less than 3 Seconds, - - bilateral LE edema, R>L, which is chronic Skin: No rashes, No breakdown Musculoskeletal: No Tenderness to Palpation of Joints or Extremities Lymphatic: No Cervical, Supraclavicular, or Inguinal Adenopathy Neurological: Cranial nerves II-XII grossly intact, - - power in RLE and RUE is 1/5; power in LLE is ~ 3/5, power in LUE is 5/5; this is all chronic, from MS Psych/Mental Status: Normal Affect, Appropriate, Alert and oriented to time, place, person, mood and affect Microbiology Past 72 Hours 01/28/19 13:45 Blood Culture (Wb) - Anticubital Right Blood Culture - Preliminary No growth in 48 hours. 01/28/19 13:50 Blood Culture (Wb) - Right Hand Blood Culture - Preliminary No growth in 48 hours. 01/28/19 15:30 Urine Catheter - Catheter Urine Culture - Final Culture exhibits no growth. Current Medications Acetaminophen (Tylenol) 650 mg PO Q6H PRN PRN PRN Reason: Pain Score 1-3/Temp > 100.7 F Last Admin: 01/29/19 19:57 Dose: 650 mg Documented by: Calamine/Phenol (Calmoseptine Ointment) 1 applic TOPICAL BID [facility]; Protocol Last Admin: 01/30/19 08:48 Dose: 1 applicatio Documented by: Calcium/Vitamin D (Os-Max 500mg + D) 1 tablet PO DAILY@1200 JODY Last Admin: 01/30/19 08:47 Dose: 1 tablet Documented by: Cholecalciferol (Vitamin D) 2,000 unit PO DAILY [facility] Last Admin: 01/30/19 08:46 Dose: 2,000 unit Documented by: Dextrose (D50w Syringe) 0 gm IV X1 PRN; Protocol PRN Reason: Hypoglycemia Enoxaparin Sodium (Lovenox) 40 mg SC DAILY@1000 JODY Last Admin: 01/30/19 08:48 Dose: 40 mg Documented by: Glucagon () 1 mg IM .X1 PRN PRN Reason: Hypoglycemia Ceftriaxone Sodium 2 gm/ (Sodium Chloride) 50 mls @ 100 mls/hr IV Q24 JODY Last Infusion: 01/30/19 09:24 Dose: Infused Documented by: Sodium Chloride () 250 mls @ 15 mls/hr IV .[id number] PRN PRN Reason: Saline Flush Methotrexate (Methotrexate) 15 mg PO Bejarano@1000 JODY Multivitamins/Minerals (Healthy Eyes) 2 capsule PO BID [facility] Last Admin: 01/30/19 08:46 Dose: 2 capsule Documented by: Nystatin (Mycostatin Powder) 1 applic TOPICAL BID [facility]; Protocol Last Admin: 01/30/19 08:47 Dose: 1 applicatio Documented by: Ondansetron HCl (Zofran) 4 mg IV Q8H PRN PRN PRN Reason: NAUSEA/VOMITING Last Admin: 01/30/19 02:08 Dose: 4 mg Documented by: Oxycodone HCl (Oxyir) 5 mg PO Q6H PRN PRN PRN Reason: Pain Score 6-10/10 Last Admin: 01/30/19 04:50 Dose: 5 mg Documented by: Sodium Chloride () 10 - 40 ml IV UD PRN PRN Reason: SALINE FLUSH Last Admin: 01/30/19 02:08 Dose: 20 ml Documented by: STROKE Vital Signs/Narrative: Vital Signs Temp Pulse Resp BP Pulse Ox 01/30/19 11:00 98 01/30/19 08:53 98.7 F 106 H 18 153/69 H 96 Medical Necessity - Tobacco Use Smoking Status: Never smoker Assessment/Plan All Active Problems Severe sepsis (Acute) UTI (urinary tract infection) (Acute) 78-year-old female admitted with complaint of weakness and found to have sepsis due to UTI. 1. Sepsis due to UTI Resolving. Temperature has settled. temperature has trended down and was 98.4F today on IV ceftriaxone Blood and urine showed no growth. continue IV ceftriaxone for 1 more day. 2. FOZIA: resolved. 3. Hypokalemia. resolved. 4. Lactic acidosis: resolved. 5. History of multiple sclerosis: has residual right sided weakness. On methotrexate 6 tablets weekly on Sundays. to follow up with her neurologist at [facility] upon discharge. DVT prophylaxis: lovenox CODE STATUS: Full code Disposition: for Dc to TCU tomorrow Code Visit Inpatient E&M: 68956 Subs Hosp L2
[2019-01-30 12:28] LABS: Absolute Lymphocyte Count 0.39 X10^3/uL (0.83-4.51); Absolute Neutrophil Count 4.9 X10^3/uL (2.0-7.7); Basophil# 0.01 X10^3/uL; Basophil% 0.2 % (0-1); Hematocrit 33.7 % (37-47); Hemoglobin 11.6 g/dL (12.0-15.0); Lymphocyte # 0.39 X10^3/ul (4.0); Lymphocyte % 6.4 % (19-41); Mean Corp Hgb Conc 34.4 g/dL (32-36); Mean Corpuscular Hgb 32.5 pg (27.0-32.0); Mean Corpuscular Volume 94.4 fL (81-99); Mean Platelet Vol. 11.4 fl (6.2-12.0); Monocyte# 0.68 X10^3/uL; Monocyte% 11.2 % (0-10); NRBC Flagged by Analyzer 0 % (0-5); Neutrophil # 4.94 X10^3/uL (2.7-7.7); Neutrophil % 81.7 % (47-70); POSITIVE DIFFERENTIAL YES; Platelet Count 148 K/mm3 (150-450); RBC Distribution Width CV 14.6 % (11.6-14.6); RBC Distribution Width SD 50.4 fl (35.1-43.9); Red Blood Count 3.57 M/mm3 (4.2-5.4); White Blood Count 6.1 K/mm3 (4.4-11.0)
[2019-01-30 12:35] LABS: Differential Indicated SCAN CRITERIA MET
[2019-01-30 12:56] LABS: Anion Gap 7 (5-15); BUN 14 mg/dL (7-18); BUN/Creat Ratio 22.8 RATIO (10-20); Calcium,Total 7.9 mg/dL (8.5-10.1); Chloride 108 mmol/L (98-107); Creatinine, Serum 0.62 mg/dL (0.55-1.02); EST Glomerular Filtration Rate 100 mL/min (>60); Est Glom Filt Rate - Afr Amer 121 mL/min (>60); Estimated Creatinine Clearance 41.33 ml/min; Glucose 130 mg/dL (74-106); Potassium 3.5 mmol/L (3.5-5.1); Sodium Level 139 mmol/L (136-145)
[2019-01-30 12:58] LABS: Differential Comment SCANNED; Red Cell Morphology NORM C+C NORMAL (NORM C&C)
[2019-01-30] MEDS: Acetaminophen 325 MG Tablet 650 MG PO (23:25)
[2019-01-31 03:00] VITALS: PULSE 88
[2019-01-31 04:00] VITALS: BP 139/75; PULSE 99; RESP 16; TEMP 36.8; O2SAT 94
[2019-01-31] MEDS: Acetaminophen 325 MG Tablet 650 MG PO (05:53)
[2019-01-31 07:38] VITALS: PULSE 97
[2019-01-31 07:51] VITALS: O2SAT 95
[2019-01-31 10:06] VITALS: BP 106/61; PULSE 99; RESP 18; TEMP 36.7; O2SAT 93
[2019-01-31] MEDS: Menthol/Lanolin/Calamine/Znox 113 GM Tube 1 APPLIC TOPICAL (10:15)
[2019-01-31] MEDS: Multivitamin (Healthy Eyes) Capsule 2 CAP PO (10:15)
[2019-01-31] MEDS: Enoxaparin 40 MG/0.4 ML Syringe SC (10:16)
[2019-01-31] MEDS: Nystatin Powder 15gm Bottle 1 APPLIC TOPICAL (10:16)
[2019-01-31] MEDS: 0.9% Saline Lock 10 ML Syringe IV (10:21)
--- NOTE | 2019-01-31 11:21 | PCM.TXEXTCAR ---
- Diet 01/28/19 13:28 Diet: Cardiac/Low Cholesterol Food consistency:: Regular Liquid Consistency:: Regular/Thin - Routine Orders/Code Status Enema Type: Fleetz Enema Frequency: Daily PRN Suppository Type: Dulcolax 10mg Suppository Frequency: Daily PRN O2 Frequency: PRN Keep PO Greater than or Equal to (%): 90 - Therapies Weight Bearing: Weight bearing as tolerated Physical Therapy: Eval and Treat Occupational Therapy: Eval and Treat - Allergies/Procedures Done in Hospital Allergies/Adverse Reactions: Allergies aspirin Adverse Reaction (Verified 01/28/19 08:47) Other pt states she is not to take aspirin due to being on methotrexate Procedures: None - Type of Care/Length of Stay Estimated LOS: Convalescent Care Less Than 30 days Type of Care Needed: Skilled Rehab Potential: Good Prognosis: Good - Additional Orders/Day of Discharge Day of Discharge: 01/31/19 - Dietary and Speech Recommendations Dietitian Recommendations/Changes: Recommend regular diet. - Follow Up Care Primary Care Physician: Noemy Hoskins MD [Primary Care Provider] - Please follow up with your Primary Care Physician in: one week
--- NOTE | 2019-01-31 11:36 | CASEMGMT ---
Patient is ready for discharge to [facility] TCU. [facility] Keiry LILLY
[2019-01-31 11:39] VITALS: PULSE 104
--- NOTE | 2019-01-31 11:39 | PHA.DC.MR ---
Pharmacy Service has performed discharge medication reconciliation for this patient upon transfer to TCU The patient's discharge medication list was reviewed for discrepancies and discrepancies were resolved. Home Medications Calcium Carbonate/Vitamin D3 [Calcium 600 + Vit D Tablet] 1 tab PO DAILY 05/02/18 Cholecalciferol (Vitamin D3) [Vitamin D3] 2,000 unit PO DAILY 05/02/18 Methotrexate Sodium [Methotrexate] 6 tab PO FLORES 05/02/18 DOSING VERIFIED BY PHARMACY [place]-3 Fatty Acids [Fish Oil] 500 mg PO DAILY 05/02/18 Vit C/Vit E AC/Lut/Copper/Zinc [Preservision Lutein Softgel] 2 each PO BID 05/02/18 Cranberry Fruit [Cranberry] 400 mg PO DAILY 01/28/19
[2019-01-31] MEDS: Calcium Carb/Vitamin D 1 TABLET Tablet PO (13:34)
--- NOTE | 2019-01-31 15:58 | PCM.DC.SUM ---
Discharge Date and Diagnosis - Problem List Patient Problems: Active and Suspected Problems Severe sepsis (Acute) UTI (urinary tract infection) (Acute) Date of Admission: 01/28/19 Date of Discharge: 01/31/19 - Primary Discharge Diagnosis Active and Suspected Problems Severe sepsis (Acute) UTI (urinary tract infection) (Acute) Hospital Course and Treatment Imaging Results: Diagnostic Data Chest X-Ray 01/28/19 09:00 IMPRESSION: Borderline cardiomegaly. Minimal increased markings at the left lung base suggestive of atelectasis. 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 She was admitted through the ED on 01/28/2019 with a complaint of generalized pain which started a few days ago she had associated weakness. She does have chronic right-sided weakness. She however felt generally weaker than usual. Admitted to having burning with urination and frequent urination but denied any fever or chills, any nausea vomiting or diarrhea. Review of systems is otherwise negative. She came into the ED where vitals were significant for temperature of 99.5 with pulse rate of 124 and respiratory rate of 17. Blood pressure was 148/55. Chemistry showed creatinine of 1.23 and lactic acid of 2.2 and white cell count was 16. UA was positive for UTI and chest x-ray showed borderline cardiomegaly with minimal increased markings of the left lung base suggestive of atelectasis. She was admitted to be managed for sepsis due to UTI. She was started on IV ceftriaxone. Blood cultures and urine cultures were obtained. Patient was also hydrated with IV fluids per sepsis protocol. Temperature gradually settled and tachycardia also resolved. Blood cultures were negative and urine cultures were also negative. Patient received 4 days of IV antibiotics. Patient improved markedly was deemed to need further rehab by physical therapy. She was therefore discharged to the transitional care unit on 01/31/2019. She is follow-up with her primary care doctor and her neurologist. She is seen and examined prior to discharge. She had no complaints and felt well. was by her bedside questions with regards to her care. Review of systems otherwise negative. Labs and vitals reviewed. Home medications reviewed and reconciled o/e: Vital Signs Height 5 ft 4 in Weight: 178 lb 2.136 oz Weight in Pounds 178.1 lbs Pulse Ox 93 Temperature 98.1 F Pulse Rate 99 Respiratory Rate 18 Blood Pressure 106/61 Blood Pressure Position Sitting General: Alert, Oriented x3, Cooperative, No apparent distress HEENT: Atraumatic, PERRLA, EOMI, Normocephalic Oral: Dry Mucosa Neck: Supple, No JVD, Negative Carotid Bruits Lungs: Clear to auscultation, Normal air movement, No rhonchi, No wheeze Cardiovascular: Regular rate, Regular Rhythm, Normal S1, Normal S2, No murmurs Abdomen: Bowel Sounds Present, Soft, Non Tender, Non-Distended, No Hepato-splenomegaly Extremities: No clubbing, No cyanosis, Capillary Refill Less than 3 Seconds, - - bilateral LE edema, R>L, which is chronic Skin: No rashes, No breakdown Musculoskeletal: No Tenderness to Palpation of Joints or Extremities Lymphatic: No Cervical, Supraclavicular, or Inguinal Adenopathy Neurological: Cranial nerves II-XII grossly intact, - - power in RLE and RUE is 1/5; power in LLE is ~ 3/5, power in LUE is 5/5; this is all chronic, from MS Psych/Mental Status: Normal Affect, Appropriate, Alert and oriented to time, place, person, mood and affect Patient Problems: Active and Suspected Problems Severe sepsis (Acute) UTI (urinary tract infection) (Acute) - Physical Exam Vitals/I&O's: Vital Signs Temp Pulse Resp BP Pulse Ox 98.1 F 99 18 106/61 93 01/31/19 10:06 01/31/19 10:06 01/31/19 10:06 01/31/19 10:06 01/31/19 10:06 Oxygen Delivery Method Room Air Weight: 178 lb 2.136 oz Body Mass Index (BMI) 30.4 Intake and Output for Last 24 Hours 01/29/19 01/30/19 01/31/19 23:59 23:59 23:59 Intake Total 2245 / 2245 790 / 790 920 / 920 Output Total 1100 / 1100 1675 / 1675 650 / 650 Balance 1145 / 1145 -885 / -885 270 / 270 Microbiology Past 72 Hours 01/28/19 13:45 Blood Culture (Wb) - Anticubital Right Blood Culture - Preliminary No growth in 48 hours. 01/28/19 13:50 Blood Culture (Wb) - Right Hand Blood Culture - Preliminary No growth in 48 hours. 01/28/19 15:30 Urine Catheter - Catheter Urine Culture - Final Culture exhibits no growth. Current Medications Acetaminophen (Tylenol) 650 mg PO Q6H PRN PRN PRN Reason: Pain Score 1-3/Temp > 100.7 F Last Admin: 01/31/19 05:53 Dose: 650 mg Documented by: Calamine/Phenol (Calmoseptine Ointment) 1 applic TOPICAL BID [facility]; Protocol Last Admin: 01/31/19 10:15 Dose: 1 applicatio Documented by: Calcium/Vitamin D (Os-Max 500mg + D) 1 tablet PO DAILY@1200 JODY Last Admin: 01/31/19 13:34 Dose: 1 tablet Documented by: Cholecalciferol (Vitamin D) 2,000 unit PO DAILY [facility] Last Admin: 01/31/19 10:16 Dose: 2,000 unit Documented by: Dextrose (D50w Syringe) 0 gm IV X1 PRN; Protocol PRN Reason: Hypoglycemia Enoxaparin Sodium (Lovenox) 40 mg SC DAILY@1000 JODY Last Admin: 01/31/19 10:16 Dose: 40 mg Documented by: Glucagon () 1 mg IM .X1 PRN PRN Reason: Hypoglycemia Ceftriaxone Sodium 2 gm/ (Sodium Chloride) 50 mls @ 100 mls/hr IV Q24 [facility] Last Infusion: 01/31/19 11:07 Dose: Infused Documented by: Sodium Chloride () 250 mls @ 15 mls/hr IV .[id number] PRN PRN Reason: Saline Flush Methotrexate (Methotrexate) 15 mg PO Bejarano@1000 JODY Multivitamins/Minerals (Healthy Eyes) 2 capsule PO BID [facility] Last Admin: 01/31/19 10:15 Dose: 2 capsule Documented by: Nystatin (Mycostatin Powder) 1 applic TOPICAL BID [facility]; Protocol Last Admin: 01/31/19 10:16 Dose: 1 applicatio Documented by: Ondansetron HCl (Zofran) 4 mg IV Q8H PRN PRN PRN Reason: NAUSEA/VOMITING Last Admin: 01/30/19 02:08 Dose: 4 mg Documented by: Oxycodone HCl (Oxyir) 5 mg PO Q6H PRN PRN PRN Reason: Pain Score 6-10/10 Last Admin: 01/30/19 04:50 Dose: 5 mg Documented by: Sodium Chloride () 10 - 40 ml IV UD PRN PRN Reason: SALINE FLUSH Last Admin: 01/31/19 10:21 Dose: 10 ml Documented by: Discharge Diet: Low fat/ Low Cholesterol Discharge Activity: Return to Normal Activity Weight Bearing Status: Weight bearing as tolerated Call your doctor if you observe: Fever of 101 or Higher Home Medications: Medications to take at Discharge Calcium Carbonate/Vitamin D3 [Calcium 600 + Vit D Tablet] 1 tab PO DAILY 05/02/18 Cholecalciferol (Vitamin D3) [Vitamin D3] 2,000 unit PO DAILY 05/02/18 Methotrexate Sodium [Methotrexate] 6 tab PO BEJARANO 05/02/18 [place]-3 Fatty Acids [Fish Oil] 500 mg PO DAILY 05/02/18 Vit C/Vit E AC/Lut/Copper/Zinc [Preservision Lutein Softgel] 2 each PO BID 05/02/18 Cranberry Fruit [Cranberry] 400 mg PO DAILY 01/28/19 Primary Care Physician: Noemy Hoskins MD [Primary Care Provider] - Please follow up with your Primary Care Physician in: one week Disposition: Fdc facility Minutes spent on discharge:: 40 Patient Condition:: Stable Medical Necessity - Tobacco Use Smoking Status: Never smoker Meaningful Use Info Meaningful Use Diagnoses (Choose all that apply): None applicable Code Visit Inpatient E&M: 77092 Disch Hosp
--- NOTE | 2019-02-04 10:02 | CCN.REFER ---
Met with patient in room while in TCU. Patient declines CCN.
== END 2019-01-31 16:09 | disposition skilled nursing facility (03) | DRG 872 ==
LOC: ED 11:29 → PCU 13:02
PROVIDERS: Admitting Provider Student in an Organized Health Care Education/Training Program; Emergency Provider Emergency Medicine; Family Provider Internal Medicine; PCP Internal Medicine; Referring Provider Internal Medicine; Visit Provider Student in an Organized Health Care Education/Training Program
DX: A41.9 Sepsis, unspecified organism (principal); N17.9 Acute kidney failure, unspecified; E87.2 Acidosis; N39.0 Urinary tract infection, site not specified; G35 Multiple sclerosis; R65.20 Severe sepsis without septic shock; E87.6 Hypokalemia; Z23 Encounter for immunization
CPT/HCPCS: 36415; 71045; 80048; 80053; 81001; 83605; 84484; 85025; 87040; 87086; 94762; 97116; 97163; 97166; 97530; 97535; 97803; 99285; G0008; J7030; J7040; J7050; 90686; A4216; J0696; J2405

== ENCOUNTER 2019-01-31 16:27 | Inpatient (IN) | payer MEDICARE, OTHER, SELFPAY ==
[2019-01-28 13:29] VITALS: BMI 30.4
[2019-01-31 16:35] VITALS: BP 148/78; PULSE 100; RESP 16; TEMP 36.9; O2SAT 94; BMI 30.4; BMI 33.1
--- NOTE | 2019-01-31 16:36 | NURSING ---
PT ARRIVED FROM U BY WHEEL CHAIR WITH FAMILY AT 1615.
--- NOTE | 2019-01-31 19:39 | NURSING ---
Code status discussed with pt, pt wishes to be a full code.
[2019-01-31] MEDS: Multivitamin (Healthy Eyes) Capsule 1 CAP PO (19:44)
--- NOTE | 2019-01-31 20:15 | HP.PCM_ITS ---
Problem List (1) Debility Status: Acute (2) Acute kidney injury Status: Acute (3) Hypokalemia Status: Acute (4) Lactic acidosis Status: Acute (5) Multiple sclerosis Status: Chronic (6) Right hemiplegia Status: Chronic (7) Severe sepsis Status: Acute (8) UTI (urinary tract infection) Status: Acute History of Present Illness Date of Admission: 01/31/19 Chief Complaint: Here for rehabilitation, strengthening, prior to discharge home with . The patient is a 78 year old Female with below past medical history presented to [facility] Emergency Department 01/28/2019 unable to walk, burning with urination, frequency of urination. 01/28/2019 Chest X-ray showed borderline cardiomegaly, left base atelectasis. Usually walks with walker, but weaker than usual. Pain everywhere, more in legs, consistent with MS flare per patient. Fever, Leukocytosis, Tachycardia, lactic acidosis. Urine consistent with UTI, Vancomycin IV given. [facility] recommends no treatment change for MS. 01/28/2019 Admit to Hospital. Rocephin IV for urinary tract infection. IV fluids for severe sepsis. Blood, urine cultures sent. IV fluids for acute kidney injury. Continue chronic methotrexate therapy for MS. 01/29/2019 Fever improved, cultures pending. Acute kidney injury resolved, Cr 0.68. Replete potassium. Lactic acid improved to 1.4 with IV fluids. 01/30/2019 Blood, urine cultures no growth. Rocephin IV for 1 more day. 01/31/2019 Admit to TCU with debility, here for rehabilitation, strengthening, prior to discharge home with . Past Medical History Past Medical History (Chronic Problems): Chronic Problems Multiple sclerosis (Chronic) Right hemiplegia (Chronic) Allergies aspirin Adverse Reaction (Verified 01/28/19 08:47) Other pt states she is not to take aspirin due to being on methotrexate Home Medications: Ambulatory Orders Medication Instructions Recorded Calcium Carbonate/Vitamin D3 1 tab PO DAILY 05/02/18 [Calcium 600 + Vit D Tablet] Cholecalciferol (Vitamin D3) 2,000 unit PO DAILY 05/02/18 [Vitamin D3] Methotrexate Sodium [Methotrexate] 6 tab PO FLORES 05/02/18 [place]-3 Fatty Acids [Fish Oil] 500 mg PO DAILY 05/02/18 Vit C/Vit E AC/Lut/Copper/Zinc 2 each PO BID 05/02/18 [Preservision Lutein Softgel] Cranberry Fruit [Cranberry] 400 mg PO DAILY 01/28/19 Surgical History: no surgical history Psychiatric History: No pertinent psych hx GENERAL OPERATIONS MANAGER History: No pertinent GENERAL OPERATIONS MANAGER history Lives: Spouse/ Significant Other Smoking Status: Never smoker Tobacco Use: Non-smoker Alcohol: None Drugs: None - *Family History Maternal History Items: No pertinent history Review of Systems Constitutional: Reports: Weakness. Denies: Chills, Fever, Weight Change HEENT: Denies: Head Aches, Sinus Congestion, Sinus Drainage Cardiovascular: Denies: Chest Pain, Palpitations Respiratory: Denies: Cough, Shortness of breath at rest, Sputum production Gastrointestinal: Denies: Abdominal Pain, Nausea, Vomiting Genitourinary: Denies: Dysuria Musculoskeletal: Denies: Joint Pain, Joint Tenderness Skin: Denies: Rash, Wounds Neurological: Denies: Numbness, Tingling, Focal weakness Psychiatric: Denies: Anxiety, Depression, Homicidal Ideations, Suicidal Ideations Hematologic/ Lymphatic: Denies: Easy Bruising, Easy Bleeding VTE Information - Inpt Only VTE Present on Admission: No VTE Mechan Device Prophylaxis: Knee High MAGGIE Hose VTE Pharm Prophylaxis ordered?: Yes Patient Problems: Active and Suspected Problems Debility (Acute) Acute kidney injury (Acute) Hypokalemia (Acute) Lactic acidosis (Acute) - Physical Exam Vitals/I&O's: Vital Signs Temp Pulse Resp BP Pulse Ox 98.4 F 100 16 148/78 H 94 01/31/19 16:35 01/31/19 16:35 01/31/19 16:35 01/31/19 16:35 01/31/19 16:35 Oxygen Delivery Method Room Air Weight: 84.8 kg Body Mass Index (BMI) 33.1 General: Alert, Oriented x3, Cooperative HEENT: Atraumatic, PERRLA, EOMI, Normocephalic Neck: Supple, No JVD, Negative Carotid Bruits Lungs: Clear to auscultation, Normal air movement Cardiovascular: Regular rate, No murmurs Abdomen: Bowel Sounds Present, Soft, Non Tender Extremities: Capillary Refill Less than 3 Seconds, Edema - Right 2+, left 1+ Skin: No rashes, No breakdown Musculoskeletal: No Tenderness to Palpation of Joints or Extremities Neurological: Cranial nerves II-XII grossly intact, - - Right hemiplegia. Psych/Mental Status: Normal Affect, Appropriate Current Medications Calcium/Vitamin D (Os-Max 500mg + D) 1 tablet PO DAILY [facility] Cholecalciferol (Vitamin D) 2,000 unit PO DAILY [facility] Methotrexate (Methotrexate) 15 mg PO FLORES JODY Multivitamins/Minerals (Healthy Eyes) 1 capsule PO BID JODY Last Admin: 01/31/19 19:44 Dose: 1 capsule Documented by: Tuberculin PPD (Tubersol, Aplisol, Ppd) 5 tu ID [id number] ONE Stop: 02/01/19 10:01 Tuberculin PPD (Tubersol, Aplisol, Ppd) 5 tu ID [id number] ONE Stop: 02/08/19 10:01 Assessment/Plan All Active Problems Severe sepsis (Acute) UTI (urinary tract infection) (Acute) Debility (Acute) Acute kidney injury (Acute) Hypokalemia (Acute) Lactic acidosis (Acute) 78 year old female with below past medical history significant for multiple sclerosis, hospitalized for severe sepsis secondary to urinary tract infection, complicated by acute kidney injury, hypokalemia, admitted to TCU with debility, here for rehabilitation, strengthening, prior to discharge home with . * Debility - PT/OT. * Cognition - ST. * Pain - Tylenol 1000MG Q6H PRN pain (1-10) * Bowel - Miralax 17GM daily, Senna/colace 1 tablet BID, Dulcolax 10MG daily PRN. * Adult immunization - Administer Prevnar 13, Pneumovax 23, Fluzone as necessary. * DVT prophylaxis - Lovenox 40MG sc daily. * Calcium deficiency - Calcium D 1 tablet daily. * Vitamin D deficiency - D3 2000IU daily. * MS - Methotrexate 15MG every Monday. * Macular degeneration - Healthy Eyes 1 capsule BID.
[2019-01-31] MEDS: Acetaminophen 500 MG Tablet 1000 MG PO (20:57)
[2019-01-31] MEDS: Nystatin Powder 15gm Bottle 1 APPLIC TOPICAL (20:58)
[2019-02-01] MEDS: Multivitamin (Healthy Eyes) Capsule 1 CAP PO ×2 (05:47→16:59)
[2019-02-01] MEDS: Nystatin Powder 15gm Bottle 1 APPLIC TOPICAL ×2 (05:48→19:35)
[2019-02-01 05:50] LABS: Absolute Lymphocyte Count 0.83 X10^3/uL (0.83-4.51); Absolute Neutrophil Count 3.9 X10^3/uL (2.0-7.7); Basophil# 0.06 X10^3/uL; Eosinophil# 0.18 X10^3/uL; Hematocrit 32.5 % (37-47); Hemoglobin 11.2 g/dL (12.0-15.0); Lymphocyte # 0.83 X10^3/ul (4.0); Lymphocyte % 13.9 % (19-41); Mean Corp Hgb Conc 34.5 g/dL (32-36); Mean Corpuscular Hgb 32.6 pg (27.0-32.0); Mean Corpuscular Volume 94.5 fL (81-99); Mean Platelet Vol. 11.2 fl (6.2-12.0); Monocyte# 0.98 X10^3/uL; Monocyte% 16.4 % (0-10); NRBC Flagged by Analyzer 0 % (0-5); Neutrophil # 3.89 X10^3/uL (2.7-7.7); Neutrophil % 65.2 % (47-70); Platelet Count 164 K/mm3 (150-450); RBC Distribution Width SD 51.7 fl (35.1-43.9); Red Blood Count 3.44 M/mm3 (4.2-5.4)
[2019-02-01] MEDS: Senna/Docusate Sodium 1 Tablet PO (05:51)
[2019-02-01] MEDS: Polyethylene Glycol 3350 17 GM PACKET PO (05:51)
[2019-02-01] MEDS: Enoxaparin 40 MG/0.4 ML Syringe SC (05:52)
[2019-02-01] MEDS: Calcium Carb/Vitamin D 1 TABLET Tablet PO (05:52)
[2019-02-01] MEDS: Acetaminophen 500 MG Tablet 1000 MG PO ×3 (05:57→23:06)
[2019-02-01 06:11] LABS: Anion Gap 7 (5-15); BUN 9 mg/dL (7-18); BUN/Creat Ratio 16.9 RATIO (10-20); Calcium,Total 7.7 mg/dL (8.5-10.1); Chloride 109 mmol/L (98-107); Creatinine, Serum 0.53 mg/dL (0.55-1.02); EST Glomerular Filtration Rate 118 mL/min (>60); Est Glom Filt Rate - Afr Amer 143 mL/min (>60); Estimated Creatinine Clearance 39.59 ml/min; Glucose 93 mg/dL (74-106); Potassium 3.2 mmol/L (3.5-5.1); Sodium Level 142 mmol/L (136-145)
[2019-02-01 09:30] VITALS: PULSE 93; RESP 18; O2SAT 98
[2019-02-01] MEDS: Tuberculin,Purif.prot.deriv. 50 TU/ML Vial 5 ML ID (10:02)
--- NOTE | 2019-02-01 14:39 | PHA.CONS_ITS ---
<Agustina Farley - Last Filed: 02/01/19 14:39> Progress Note - Pharmacy Subjective: TCU Admission Objective: Allergies aspirin Adverse Reaction (Verified 01/28/19 08:47) Other pt states she is not to take aspirin due to being on methotrexate Current Medications Generic Name Dose Route Start Last Admin Trade Name Diegoq PRN Reason Stop Dose Admin Acetaminophen 1,000 mg 01/31/19 20:30 02/01/19 05:57 Tylenol PO 1,000 mg Q6H PRN Administration Pain Score 1-10/10 Bisacodyl 10 mg 01/31/19 20:31 Dulcolax PO DAILY PRN Constipation Calamine/Phenol 1 applic 02/01/19 22:00 Calmoseptine Ointment TOPICAL 599,0 REPLACED BY [facility] Protocol Calcium/Vitamin D 1 tablet 02/01/19 06:00 02/01/19 05:52 Os-Max 500mg + D PO 1 tablet DAILY JODY Administration Cholecalciferol 2,000 unit 02/01/19 06:00 02/01/19 05:47 Vitamin D PO 2,000 unit DAILY JODY Administration Enoxaparin Sodium 40 mg 02/01/19 06:00 02/01/19 05:52 Lovenox SC 40 mg DAILY@0600 JODY Administration Methotrexate 15 mg 02/03/19 10:00 Methotrexate PO FLORES REPLACED BY [facility] Multi-Ingredient Cream 1 applic 01/31/19 22:00 01/31/19 20:58 Eucerin TOPICAL Not Given QHS REPLACED BY [facility] Protocol Multivitamins/Minerals 1 capsule 01/31/19 18:30 02/01/19 05:47 Healthy Eyes PO 1 capsule BID JODY Administration Nystatin 1 applic 01/31/19 22:00 02/01/19 05:48 Mycostatin Powder TOPICAL 1 applicatio 06,2200 REPLACED BY [facility] Administration Protocol Polyethylene Glycol 17 gm 02/01/19 06:00 02/01/19 05:51 Miralax PO 17 gm DAILY JODY Administration Potassium Chloride 20 meq 02/02/19 08:00 K-Dur PO DAILYCM JODY Senna/Docusate Sodium 1 tablet 02/01/19 06:00 02/01/19 05:51 Senokot-S, Caitlyn-Colace PO 1 tablet BID JODY Administration Tuberculin PPD 5 tu 02/08/19 10:00 Tubersol, Aplisol, Ppd ID 02/08/19 10:01 [id number] ONE Problem List Debility (Acute) Acute kidney injury (Acute) Hypokalemia (Acute) Lactic acidosis (Acute) Multiple sclerosis (Chronic) Right hemiplegia (Chronic) Vital Signs Temp Pulse Resp BP Pulse Ox 98.4 F 93 18 148/78 H 98 01/31/19 16:35 02/01/19 09:30 02/01/19 09:30 01/31/19 16:35 02/01/19 09:30 Oxygen Delivery Method Room Air Weight: 84.8 kg Body Mass Index (BMI) 33.1 Sodium 142 mmol/L (136-145) 02/01/19 05:05 Potassium 3.2 mmol/L (3.5-5.1) L 02/01/19 05:05 Chloride 109 mmol/L (98-107) H 02/01/19 05:05 Carbon Dioxide 26.0 mmol/L (21.0-32.0) 02/01/19 05:05 Anion Gap 7 (5-15) 02/01/19 05:05 BUN 9 mg/dL (7-18) 02/01/19 05:05 Creatinine 0.53 mg/dL (0.55-1.02) L 02/01/19 05:05 Est GFR (MDRD) Af Amer 143 mL/min (>60) 02/01/19 05:05 Est GFR (MDRD) Non-Af 118 mL/min (>60) 02/01/19 05:05 BUN/Creatinine Ratio 16.9 RATIO (10-20) 02/01/19 05:05 Glucose 93 mg/dL (74-106) 02/01/19 05:05 Assessment/Plan: 1. Pain: acetaminophen 1000mg PO Q6H PRN pain (-12/20). Please continue to monitor for pain and PRN usage. 2. Multiple sclerosis: methotrexate 15mg PO every Monday. Please continue to monitor for rash and pancytopenia. 3. DVT prophylaxis: enoxaparin 40mg SC daily. Please continue to monitor for S/S of bleeding, platelets, and renal function. 4. Hypokalemia: potassium chloride 20mEq PO DAILYCM. Please continue to monitor potassium levels. *5. Calcium/Vitamin D deficiencies: Os-Max 500mg + D 1T PO daily and cholecalciferol 2000units PO daily. Last vitamin D level from 2014. Please consider ordering one now and then annually as clinically appropriate. Thanks. 6. Macular degeneration: Healthy eyes 1 capsule PO BID. Please continue to monitor. Psychotropic Medications: None Unnecessary Medications: None Bowel Regimen: Miralax 17gm PO daily, senna/docusate 1T PO BID, bisacodyl 10mg PO daily PRN constipation. Please continue to monitor for constipation and PRN usage. Date of Note:: 02/01/19 - Provider Comments Provider responsibility: Provider responsible to enter orders to implement recommendations <Garret Hogue Chi - Last Filed: 02/01/19 15:20> Progress Note - Pharmacy Subjective: [] Objective: Allergies aspirin Adverse Reaction (Verified 01/28/19 08:47) Other pt states she is not to take aspirin due to being on methotrexate Current Medications Generic Name Dose Route Start Last Admin Trade Name Freq PRN Reason Stop Dose Admin Acetaminophen 1,000 mg 01/31/19 20:30 02/01/19 05:57 Tylenol PO 1,000 mg Q6H PRN Administration Pain Score 1-10/10 Bisacodyl 10 mg 01/31/19 20:31 Dulcolax PO DAILY PRN Constipation Calamine/Phenol 1 applic 02/01/19 22:00 Calmoseptine Ointment TOPICAL 0600,2200 REPLACED BY [facility] Protocol Calcium/Vitamin D 1 tablet 02/01/19 06:00 02/01/19 05:52 Os-Max 500mg + D PO 1 tablet DAILY JODY Administration Cholecalciferol 2,000 unit 02/01/19 06:00 02/01/19 05:47 Vitamin D PO 2,000 unit DAILY JODY Administration Enoxaparin Sodium 40 mg 02/01/19 06:00 02/01/19 05:52 Lovenox SC 40 mg DAILY@0600 JODY Administration Methotrexate 15 mg 02/03/19 10:00 Methotrexate PO FLORES JODY Multi-Ingredient Cream 1 applic 01/31/19 22:00 01/31/19 20:58 Eucerin TOPICAL Not Given QHS REPLACED BY [facility] Protocol Multivitamins/Minerals 1 capsule 01/31/19 18:30 02/01/19 05:47 Healthy Eyes PO 1 capsule BID JODY Administration Nystatin 1 applic 01/31/19 22:00 02/01/19 05:48 Mycostatin Powder TOPICAL 1 applicatio 0600,2200 JODY Administration Protocol Polyethylene Glycol 17 gm 02/01/19 06:00 02/01/19 05:51 Miralax PO 17 gm DAILY JODY Administration Potassium Chloride 20 meq 02/02/19 08:00 K-Dur PO DAILYCM JODY Senna/Docusate Sodium 1 tablet 02/01/19 06:00 02/01/19 05:51 Senokot-S, Caitlyn-Colace PO 1 tablet BID JODY Administration Tuberculin PPD 5 tu 02/08/19 10:00 Tubersol, Aplisol, Ppd ID 02/08/19 10:01 X1 ONE Problem List Debility (Acute) Acute kidney injury (Acute) Hypokalemia (Acute) Lactic acidosis (Acute) Multiple sclerosis (Chronic) Right hemiplegia (Chronic) Vital Signs Temp Pulse Resp BP Pulse Ox 98.4 F 93 18 148/78 H 98 01/31/19 16:35 02/01/19 09:30 02/01/19 09:30 01/31/19 16:35 02/01/19 09:30 Oxygen Delivery Method Room Air Weight: 84.8 kg Body Mass Index (BMI) 33.1 Sodium 142 mmol/L (136-145) 02/01/19 05:05 Potassium 3.2 mmol/L (3.5-5.1) L 02/01/19 05:05 Chloride 109 mmol/L (98-107) H 02/01/19 05:05 Carbon Dioxide 26.0 mmol/L (21.0-32.0) 02/01/19 05:05 Anion Gap 7 (5-15) 02/01/19 05:05 BUN 9 mg/dL (7-18) 02/01/19 05:05 Creatinine 0.53 mg/dL (0.55-1.02) L 02/01/19 05:05 Est GFR (MDRD) Af Amer 143 mL/min (>60) 02/01/19 05:05 Est GFR (MDRD) Non-Af 118 mL/min (>60) 02/01/19 05:05 BUN/Creatinine Ratio 16.9 RATIO (10-20) 02/01/19 05:05 Glucose 93 mg/dL (74-106) 02/01/19 05:05 Assessment/Plan: Psychotropic Medications: Unnecessary Medications: Bowel Regimen: - Provider Comments Provider responsibility: Provider responsible to enter orders to implement recommendations Provider Comments to Recommendations by Pharmacy: Agree
[2019-02-01 15:44] VITALS: BP 150/68; PULSE 86; RESP 17; TEMP 36.7; O2SAT 98
[2019-02-01] MEDS: Menthol/Lanolin/Calamine/Znox 113 GM Tube 1 APPLIC TOPICAL (19:33)
[2019-02-02] MEDS: Menthol/Lanolin/Calamine/Znox 113 GM Tube 1 APPLIC TOPICAL ×2 (04:30→20:42)
[2019-02-02] MEDS: Multivitamin (Healthy Eyes) Capsule 1 CAP PO ×2 (04:30→17:02)
[2019-02-02] MEDS: Calcium Carb/Vitamin D 1 TABLET Tablet PO (04:31)
[2019-02-02] MEDS: Enoxaparin 40 MG/0.4 ML Syringe SC (04:31)
[2019-02-02] MEDS: Nystatin Powder 15gm Bottle 1 APPLIC TOPICAL ×2 (04:31→20:41)
[2019-02-02] MEDS: Acetaminophen 500 MG Tablet 1000 MG PO ×2 (13:53→20:39)
[2019-02-02 16:00] VITALS: BP 140/74; PULSE 102; RESP 20; TEMP 36.6; O2SAT 98
[2019-02-02 20:40] VITALS: PULSE 92; RESP 16; O2SAT 98
[2019-02-03] MEDS: Enoxaparin 40 MG/0.4 ML Syringe SC (04:57)
[2019-02-03] MEDS: Calcium Carb/Vitamin D 1 TABLET Tablet PO (04:58)
[2019-02-03] MEDS: Multivitamin (Healthy Eyes) Capsule 1 CAP PO ×2 (04:58→17:00)
[2019-02-03] MEDS: Nystatin Powder 15gm Bottle 1 APPLIC TOPICAL ×2 (05:01→19:48)
[2019-02-03] MEDS: Menthol/Lanolin/Calamine/Znox 113 GM Tube 1 APPLIC TOPICAL ×2 (05:02→19:47)
[2019-02-03 05:44] LABS: Anion Gap 8 (5-15); BUN 8 mg/dL (7-18); BUN/Creat Ratio 16.1 RATIO (10-20); Calcium,Total 7.9 mg/dL (8.5-10.1); Chloride 107 mmol/L (98-107); EST Glomerular Filtration Rate 128 mL/min (>60); Est Glom Filt Rate - Afr Amer 155 mL/min (>60); Estimated Creatinine Clearance 39.59 ml/min; Glucose 87 mg/dL (74-106); Potassium 3.6 mmol/L (3.5-5.1); Sodium Level 142 mmol/L (136-145)
[2019-02-03] MEDS: Methotrexate 2.5 MG Tablet 15 MG PO (10:53)
--- NOTE | 2019-02-03 12:24 | NURSING ---
Pt given scheduled Monday dose of Methotrexate. Pt placed on chemo precautions for 48 hours.
[2019-02-03 15:07] VITALS: BP 142/75; PULSE 99; RESP 18; TEMP 37.1; O2SAT 97
[2019-02-03 19:50] VITALS: PULSE 102; RESP 16; O2SAT 97
[2019-02-03] MEDS: Acetaminophen 500 MG Tablet 1000 MG PO (20:10)
[2019-02-04] MEDS: Enoxaparin 40 MG/0.4 ML Syringe SC (05:15)
[2019-02-04] MEDS: Calcium Carb/Vitamin D 1 TABLET Tablet PO (05:15)
[2019-02-04] MEDS: Multivitamin (Healthy Eyes) Capsule 1 CAP PO ×2 (05:15→16:50)
[2019-02-04] MEDS: Menthol/Lanolin/Calamine/Znox 113 GM Tube 1 APPLIC TOPICAL ×2 (05:16→20:29)
[2019-02-04] MEDS: Nystatin Powder 15gm Bottle 1 APPLIC TOPICAL ×2 (05:16→20:34)
[2019-02-04 11:00] VITALS: PULSE 92; RESP 18; O2SAT 94
--- NOTE | 2019-02-04 13:02 | NURSING ---
FINE CRACKLES TO PT LEFT LOWER POST LUBE. ENCOURAGED PT TO USE THE I.S,REPORTED TO BHAKTI KHAN
[2019-02-04 15:30] VITALS: BP 143/80; PULSE 85; RESP 17; TEMP 37.1; O2SAT 97
[2019-02-04] MEDS: Acetaminophen 500 MG Tablet 1000 MG PO (23:06)
[2019-02-05] MEDS: Enoxaparin 40 MG/0.4 ML Syringe SC (05:31)
[2019-02-05] MEDS: Calcium Carb/Vitamin D 1 TABLET Tablet PO (05:32)
[2019-02-05] MEDS: Multivitamin (Healthy Eyes) Capsule 1 CAP PO ×2 (05:32→17:13)
[2019-02-05] MEDS: Senna/Docusate Sodium 1 Tablet PO ×2 (05:33→17:12)
[2019-02-05] MEDS: Menthol/Lanolin/Calamine/Znox 113 GM Tube 1 APPLIC TOPICAL ×2 (05:35→21:44)
[2019-02-05] MEDS: Nystatin Powder 15gm Bottle 1 APPLIC TOPICAL ×2 (05:36→21:42)
[2019-02-05 09:45] VITALS: PULSE 97; RESP 18; O2SAT 98
[2019-02-05 15:54] VITALS: BP 140/73; PULSE 92; RESP 18; TEMP 37.1; O2SAT 94
[2019-02-06] MEDS: Multivitamin (Healthy Eyes) Capsule 1 CAP PO ×2 (04:17→17:12)
[2019-02-06] MEDS: Calcium Carb/Vitamin D 1 TABLET Tablet PO (04:17)
[2019-02-06] MEDS: Enoxaparin 40 MG/0.4 ML Syringe SC (04:19)
[2019-02-06] MEDS: Nystatin Powder 15gm Bottle 1 APPLIC TOPICAL ×2 (04:20→20:36)
[2019-02-06] MEDS: Menthol/Lanolin/Calamine/Znox 113 GM Tube 1 APPLIC TOPICAL ×2 (04:21→20:36)
--- NOTE | 2019-02-06 11:32 | MDS.RN ---
Pain interview for bettye 02/07/19 completed.
[2019-02-06 15:35] VITALS: BP 145/60; PULSE 104; RESP 20; TEMP 36.6; O2SAT 96
--- NOTE | 2019-02-06 15:51 | CASEMGMT ---
Social Work BIMS and PHQ-9 completed for MDS. Carla Ceja, STOCK LETTERER FRAMING INSPECTOR
[2019-02-07] MEDS: Enoxaparin 40 MG/0.4 ML Syringe SC (05:25)
[2019-02-07] MEDS: Multivitamin (Healthy Eyes) Capsule 1 CAP PO ×2 (05:25→16:54)
[2019-02-07] MEDS: Calcium Carb/Vitamin D 1 TABLET Tablet PO (05:25)
[2019-02-07] MEDS: Nystatin Powder 15gm Bottle 1 APPLIC TOPICAL ×2 (05:33→21:48)
[2019-02-07] MEDS: Menthol/Lanolin/Calamine/Znox 113 GM Tube 1 APPLIC TOPICAL ×2 (05:33→21:47)
[2019-02-07 11:00] VITALS: PULSE 94; RESP 18; O2SAT 97
[2019-02-07 15:44] VITALS: BP 148/81; PULSE 93; RESP 16; TEMP 36.8; O2SAT 95
[2019-02-08] MEDS: Enoxaparin 40 MG/0.4 ML Syringe SC (05:34)
[2019-02-08] MEDS: Menthol/Lanolin/Calamine/Znox 113 GM Tube 1 APPLIC TOPICAL ×2 (05:34→21:12)
[2019-02-08] MEDS: Multivitamin (Healthy Eyes) Capsule 1 CAP PO ×2 (05:34→17:22)
[2019-02-08] MEDS: Calcium Carb/Vitamin D 1 TABLET Tablet PO (05:35)
[2019-02-08] MEDS: Nystatin Powder 15gm Bottle 1 APPLIC TOPICAL ×2 (05:35→21:12)
[2019-02-08 05:43] LABS: Absolute Lymphocyte Count 1.09 X10^3/uL (0.83-4.51); Basophil% 1.4 % (0-1); Eosinophil# 0.24 X10^3/uL; Eosinophils% 3.3 % (0-5); Hematocrit 33.4 % (37-47); Hemoglobin 11.2 g/dL (12.0-15.0); Lymphocyte # 1.09 X10^3/ul (4.0); Lymphocyte % 14.9 % (19-41); Mean Corp Hgb Conc 33.5 g/dL (32-36); Mean Corpuscular Hgb 32.7 pg (27.0-32.0); Mean Corpuscular Volume 97.4 fL (81-99); Mean Platelet Vol. 9.9 fl (6.2-12.0); Monocyte# 0.87 X10^3/uL; Monocyte% 11.9 % (0-10); NRBC Flagged by Analyzer 0 % (0-5); Neutrophil # 4.98 X10^3/uL (2.7-7.7); Neutrophil % 68.2 % (47-70); Platelet Count 256 K/mm3 (150-450); RBC Distribution Width CV 15.4 % (11.6-14.6); RBC Distribution Width SD 54.1 fl (35.1-43.9); Red Blood Count 3.43 M/mm3 (4.2-5.4); White Blood Count 7.3 K/mm3 (4.4-11.0)
[2019-02-08 06:23] LABS: Anion Gap 5 (5-15); BUN 10 mg/dL (7-18); BUN/Creat Ratio 21.9 RATIO (10-20); Calcium,Total 8.4 mg/dL (8.5-10.1); Chloride 108 mmol/L (98-107); Creatinine, Serum 0.46 mg/dL (0.55-1.02); EST Glomerular Filtration Rate 141 mL/min (>60); Est Glom Filt Rate - Afr Amer 171 mL/min (>60); Estimated Creatinine Clearance 39.59 ml/min; Glucose 87 mg/dL (74-106); Potassium 3.7 mmol/L (3.5-5.1); Sodium Level 142 mmol/L (136-145)
[2019-02-08] MEDS: Tuberculin,Purif.prot.deriv. 50 TU/ML Vial 5 ML ID (11:04)
[2019-02-08 15:31] VITALS: BP 131/72; PULSE 95; RESP 18; TEMP 36.7; O2SAT 96
[2019-02-09] MEDS: Multivitamin (Healthy Eyes) Capsule 1 CAP PO ×2 (05:40→17:43)
[2019-02-09] MEDS: Menthol/Lanolin/Calamine/Znox 113 GM Tube 1 APPLIC TOPICAL ×2 (05:41→19:38)
[2019-02-09] MEDS: Enoxaparin 40 MG/0.4 ML Syringe SC (05:41)
[2019-02-09] MEDS: Calcium Carb/Vitamin D 1 TABLET Tablet PO (05:41)
[2019-02-09] MEDS: Nystatin Powder 15gm Bottle 1 APPLIC TOPICAL ×2 (05:41→19:38)
[2019-02-09 15:26] VITALS: BP 140/64; PULSE 95; RESP 18; TEMP 37.1; O2SAT 96
[2019-02-10] MEDS: Nystatin Powder 15gm Bottle 1 APPLIC TOPICAL ×2 (06:45→19:32)
[2019-02-10] MEDS: Calcium Carb/Vitamin D 1 TABLET Tablet PO (06:45)
[2019-02-10] MEDS: Menthol/Lanolin/Calamine/Znox 113 GM Tube 1 APPLIC TOPICAL ×2 (06:45→19:32)
[2019-02-10] MEDS: Multivitamin (Healthy Eyes) Capsule 1 CAP PO ×2 (06:45→17:06)
[2019-02-10] MEDS: Enoxaparin 40 MG/0.4 ML Syringe SC (06:46)
[2019-02-10] MEDS: Methotrexate 2.5 MG Tablet 15 MG PO (08:49)
[2019-02-10 10:00] VITALS: PULSE 88; RESP 18; O2SAT 96
[2019-02-10 15:28] VITALS: BP 128/72; PULSE 94; RESP 18; TEMP 36.6; O2SAT 93
--- NOTE | 2019-02-10 22:47 | PCA ---
patient got washed up today in the morning and did not want to get cleaned up before bed.
[2019-02-11] MEDS: Menthol/Lanolin/Calamine/Znox 113 GM Tube 1 APPLIC TOPICAL ×2 (05:23→21:21)
[2019-02-11] MEDS: Calcium Carb/Vitamin D 1 TABLET Tablet PO (05:23)
[2019-02-11] MEDS: Multivitamin (Healthy Eyes) Capsule 1 CAP PO ×2 (05:23→16:52)
[2019-02-11] MEDS: Enoxaparin 40 MG/0.4 ML Syringe SC (05:24)
[2019-02-11] MEDS: Nystatin Powder 15gm Bottle 1 APPLIC TOPICAL ×2 (05:24→21:20)
[2019-02-11 15:35] VITALS: BP 126/65; PULSE 90; RESP 16; TEMP 36.7; O2SAT 97
[2019-02-11 16:00] VITALS: BP 126/63; PULSE 90; RESP 16; TEMP 36.7; O2SAT 97
[2019-02-11 21:26] VITALS: PULSE 85; RESP 16; O2SAT 97
[2019-02-12] MEDS: Enoxaparin 40 MG/0.4 ML Syringe SC (06:06)
[2019-02-12] MEDS: Calcium Carb/Vitamin D 1 TABLET Tablet PO (06:07)
[2019-02-12] MEDS: Multivitamin (Healthy Eyes) Capsule 1 CAP PO ×2 (06:07→17:06)
[2019-02-12] MEDS: Nystatin Powder 15gm Bottle 1 APPLIC TOPICAL ×2 (06:10→21:26)
[2019-02-12] MEDS: Menthol/Lanolin/Calamine/Znox 113 GM Tube 1 APPLIC TOPICAL ×2 (06:10→21:33)
[2019-02-12 11:30] VITALS: PULSE 95; RESP 18; O2SAT 98
[2019-02-12 15:39] VITALS: BP 122/73; PULSE 80; RESP 16; TEMP 36.6; O2SAT 95
[2019-02-13] MEDS: Enoxaparin 40 MG/0.4 ML Syringe SC (05:26)
[2019-02-13] MEDS: Calcium Carb/Vitamin D 1 TABLET Tablet PO (05:28)
[2019-02-13] MEDS: Nystatin Powder 15gm Bottle 1 APPLIC TOPICAL ×2 (05:29→21:45)
[2019-02-13] MEDS: Multivitamin (Healthy Eyes) Capsule 1 CAP PO ×2 (05:29→16:41)
[2019-02-13] MEDS: Menthol/Lanolin/Calamine/Znox 113 GM Tube 1 APPLIC TOPICAL ×2 (05:29→21:45)
--- NOTE | 2019-02-13 09:05 | MDS.RN ---
Information for the mds was obtained from review of the clinical record, interview of resident, staff, and direct observation of resident's care.
[2019-02-13 15:27] VITALS: BP 145/52; PULSE 87; RESP 16; TEMP 36.6; O2SAT 95
--- NOTE | 2019-02-13 16:11 | CASEMGMT ---
Social Work Spoke with patient about discharge plans and current level. and daughter present in room. Therapy stating pt still needing some assistance with LE ADLs and toileting tasks. Pt states she thought she couldn't help or do things on her own. Encouraged pt to complete tasks as independently as possible while still asking for assistance/supervision. Discussed HHC and outpatient. would like HHC to see what changes need made in the home for safety and then go to outpatient. Pt will see how the rest of the week goes, and SW will f/u for possible DC date. Carla Ceja, WATERPROOFING MACHINE OPERATOR TELEPHONE INFORMATION CLERK
[2019-02-14] MEDS: Multivitamin (Healthy Eyes) Capsule 1 CAP PO ×2 (05:16→17:31)
[2019-02-14] MEDS: Calcium Carb/Vitamin D 1 TABLET Tablet PO (05:16)
[2019-02-14] MEDS: Menthol/Lanolin/Calamine/Znox 113 GM Tube 1 APPLIC TOPICAL ×2 (05:17→21:45)
[2019-02-14] MEDS: Enoxaparin 40 MG/0.4 ML Syringe SC (05:17)
[2019-02-14] MEDS: Nystatin Powder 15gm Bottle 1 APPLIC TOPICAL ×2 (05:40→21:44)
[2019-02-14 13:35] VITALS: PULSE 86; RESP 16; O2SAT 98
[2019-02-14 16:00] VITALS: BP 136/40; PULSE 95; RESP 16; TEMP 36.6; O2SAT 97
[2019-02-15] MEDS: Menthol/Lanolin/Calamine/Znox 113 GM Tube 1 APPLIC TOPICAL ×2 (04:59→21:32)
[2019-02-15] MEDS: Nystatin Powder 15gm Bottle 1 APPLIC TOPICAL ×2 (04:59→21:32)
[2019-02-15] MEDS: Multivitamin (Healthy Eyes) Capsule 1 CAP PO ×2 (05:01→17:15)
[2019-02-15] MEDS: Enoxaparin 40 MG/0.4 ML Syringe SC (05:02)
[2019-02-15] MEDS: Calcium Carb/Vitamin D 1 TABLET Tablet PO (05:02)
[2019-02-15 05:20] LABS: Absolute Neutrophil Count 3.5 X10^3/uL (2.0-7.7); Basophil% 1.8 % (0-1); Eosinophil# 0.22 X10^3/uL; Eosinophils% 3.9 % (0-5); Hematocrit 36.9 % (37-47); Lymphocyte % 17.8 % (19-41); Mean Corp Hgb Conc 32.5 g/dL (32-36); Mean Corpuscular Hgb 31.9 pg (27.0-32.0); Mean Corpuscular Volume 98.1 fL (81-99); Mean Platelet Vol. 10.3 fl (6.2-12.0); Monocyte# 0.79 X10^3/uL; NRBC Flagged by Analyzer 0 % (0-5); Neutrophil % 62.1 % (47-70); Platelet Count 268 K/mm3 (150-450); RBC Distribution Width CV 15.3 % (11.6-14.6); Red Blood Count 3.76 M/mm3 (4.2-5.4); White Blood Count 5.6 K/mm3 (4.4-11.0)
[2019-02-15 05:33] LABS: Anion Gap 5 (5-15); BUN 13 mg/dL (7-18); BUN/Creat Ratio 21.7 RATIO (10-20); Calcium,Total 8.7 mg/dL (8.5-10.1); Chloride 109 mmol/L (98-107); EST Glomerular Filtration Rate 103 mL/min (>60); Est Glom Filt Rate - Afr Amer 125 mL/min (>60); Estimated Creatinine Clearance 39.59 ml/min; Glucose 98 mg/dL (74-106); Potassium 3.9 mmol/L (3.5-5.1); Sodium Level 142 mmol/L (136-145)
[2019-02-15 10:45] VITALS: PULSE 93; RESP 18; O2SAT 93
--- NOTE | 2019-02-15 14:13 | NURSING ---
PER THERAPY, PT IS ALLOWED TO BE UP AB JERRY IN ROOM.
[2019-02-15 16:00] VITALS: BP 125/45; PULSE 86; RESP 16; TEMP 36.7; O2SAT 95
--- NOTE | 2019-02-15 16:17 | DCINST_ITS ---
- Discharge Diagnoses Current Active Problems: Current Active and Chronic Problems Debility (Acute) Acute kidney injury (Acute) Hypokalemia (Acute) Lactic acidosis (Acute) Multiple sclerosis (Chronic) Right hemiplegia (Chronic) You will use the following diet at home:: No restrictions, Regular Your food should be the consistency of: Regular Your liquids should be the consistency of: Regular/Thin Discharge Activity: Return to Normal Activity, May Shower, Use Walker Weight Bearing Status: Weight bearing as tolerated Call your doctor if you observe: Fever of 101 or Higher, Inability to urinate, Inability to have a bowel movement, Shortness of breath, Chest pain, Uncontrolled pain Allergies/Adverse Reactions: Allergies aspirin Adverse Reaction (Verified 01/28/19 08:47) Other pt states she is not to take aspirin due to being on methotrexate Medications to take at Discharge Calcium Carbonate/Vitamin D3 [Calcium 600 + Vit D Tablet] 1 tab PO DAILY 05/02/18 Cholecalciferol (Vitamin D3) [Vitamin D3] 2,000 unit PO DAILY 05/02/18 Methotrexate Sodium [Methotrexate] 6 tab PO FLORES 05/02/18 [place]-3 Fatty Acids [Fish Oil] 500 mg PO DAILY 05/02/18 Vit C/Vit E AC/Lut/Copper/Zinc [Preservision Lutein Softgel] 2 each PO BID 05/02/18 Cranberry Fruit [Cranberry] 400 mg PO DAILY 01/28/19 Menthol/Lanolin/Calamine/Znox [Calmoseptine Ointment] 1 applic TOPICAL 0600,2200 tube 02/15/19 Mineral Oil/Petrolatum,White [Eucerin] 1 applic TOPICAL QHS jar 02/15/19 Nystatin Powder [Mycostatin Powder] 1 applic TOPICAL 0600,2200 bottle 02/15/19 Potassium Chloride [K-Dur] 20 meq PO DAILYCM #30 tablet 02/15/19 The following prescriptions were given: Potassium Chloride [K-Dur] 20 meq PO DAILYCM #30 tablet Primary Care Physician: Noemy Hoskins MD [Primary Care Provider] - Please follow up with your Primary Care Physician in: 1 week. Test Results: Test results from this visit will be discussed in further detail at your follow- up appointment, if applicable. Proposed Discharge Date: 02/19/19
--- NOTE | 2019-02-15 16:18 | PCM.DC.SUM ---
Discharge Date and Diagnosis - Problem List Patient Problems: Active and Suspected Problems Debility (Acute) Acute kidney injury (Acute) Hypokalemia (Acute) Lactic acidosis (Acute) Date of Admission: 01/31/19 Date of Discharge: 02/19/19 - Primary Discharge Diagnosis Active and Suspected Problems Debility (Acute) Acute kidney injury (Acute) Hypokalemia (Acute) Lactic acidosis (Acute) - Secondary Discharge Diagnosis Chronic Problems Multiple sclerosis (Chronic) Right hemiplegia (Chronic) Hospital Course and Treatment Imaging Results: 01/31/19 17:04 Diet: Regular Diet Labs (Last 48 Hours) 02/15/19 02/15/19 05:10 05:10 WBC 5.6 RBC 3.76 L Hgb 12.0 Hct 36.9 L MCV 98.1 MCH 31.9 MCHC 32.5 RDW Std Deviation 54.0 H RDW Coeff of Luanne 15.3 H Plt Count 268 MPV 10.3 Immature Gran % (Auto) 0.400 Neut % (Auto) 62.1 Lymph % (Auto) 17.8 L [place] % (Auto) 14.0 H Eos % (Auto) 3.9 Baso % (Auto) 1.8 H Absolute Neuts (auto) 3.5 Absolute Lymphs (auto) 1.00 Nucleated RBC % 0 Sodium 142 Potassium 3.9 Chloride 109 H Carbon Dioxide 28.0 Anion Gap 5 BUN 13 Creatinine 0.60 Estim Creat Clear Calc 39.59 Est GFR (MDRD) Af Amer 125 Est GFR (MDRD) Non-Af 103 BUN/Creatinine Ratio 21.7 H Glucose 98 Calcium 8.7 Operations: None Procedures: None Summary of Care Provided: The patient is a 78 year old Female with below past medical history significant for multiple sclerosis, hospitalized for severe sepsis secondary to urinary tract infection, complicated by acute kidney injury, hypokalemia, admitted to TCU with debility, here for rehabilitation, strengthening, prior to discharge home with . Discharge home with , outpatient PT/OT. Patient Problems: Active and Suspected Problems Debility (Acute) Acute kidney injury (Acute) Hypokalemia (Acute) Lactic acidosis (Acute) - Physical Exam Vitals/I&O's: Vital Signs Temp Pulse Resp BP Pulse Ox 98.1 F 86 16 125/45 H 95 02/15/19 16:00 02/15/19 16:00 02/15/19 16:00 12/06/19 16:00 02/15/19 16:00 Oxygen Delivery Method Room Air Weight: 74.871 kg Body Mass Index (BMI) 33.1 Intake and Output for Last 24 Hours 02/13/19 02/14/19 02/15/19 23:59 23:59 23:59 Intake Total 840 / 840 660 / 660 860 / 860 Balance 840 / 840 660 / 660 860 / 860 Laboratory Results 02/15/19 05:10: WBC 5.6, RBC 3.76 L, Hgb 12.0, Hct 36.9 L, MCV 98.1, MCH 31.9, MCHC 32.5, RDW Std Deviation 54.0 H, RDW Coeff of Luanne 15.3 H, Plt Count 268, MPV 10.3, Immature Gran % (Auto) 0.400, Neut % (Auto) 62.1, Lymph % (Auto) 17.8 L, [place] % (Auto) 14.0 H, Eos % (Auto) 3.9, Baso % (Auto) 1.8 H, Absolute Neuts (auto) 3.5, Absolute Lymphs (auto) 1.00, Nucleated RBC % 0 02/15/19 05:10: Sodium 142, Potassium 3.9, Chloride 109 H, Carbon Dioxide 28.0, Anion Gap 5, BUN 13, Creatinine 0.60, Estim Creat Clear Calc 39.59, Est GFR (MDRD) Af Amer 125, Est GFR (MDRD) Non-Af 103, BUN/Creatinine Ratio 21.7 H, Glucose 98, Calcium 8.7 Current Medications Acetaminophen (Tylenol) 1,000 mg PO Q6H PRN PRN Reason: Pain Score 1-10 Last Admin: 02/04/19 23:06 Dose: 1,000 mg Documented by: Bisacodyl (Dulcolax) 10 mg PO DAILY PRN PRN Reason: Constipation Calamine/Phenol (Calmoseptine Ointment) 1 applic TOPICAL 0600,2200 [facility]; Protocol Last Admin: 02/15/19 04:59 Dose: 1 applicatio Documented by: Calcium/Vitamin D (Os-Max 500mg + D) 1 tablet PO DAILY [facility] Last Admin: 02/15/19 05:02 Dose: 1 tablet Documented by: Cholecalciferol (Vitamin D) 2,000 unit PO DAILY [facility] Last Admin: 02/15/19 05:03 Dose: 2,000 unit Documented by: Enoxaparin Sodium (Lovenox) 40 mg SC DAILY@0600 [facility] Last Admin: 02/15/19 05:02 Dose: 40 mg Documented by: Methotrexate (Methotrexate) 15 mg PO [facility] Last Admin: 02/10/19 08:49 Dose: 15 mg Documented by: Multi-Ingredient Cream (Eucerin) 1 applic TOPICAL QHS [facility]; Protocol Last Admin: 02/14/19 21:44 Dose: 1 applicatio Documented by: Multivitamins/Minerals (Healthy Eyes) 1 capsule PO BID [facility] Last Admin: 02/15/19 05:01 Dose: 1 capsule Documented by: Nystatin (Mycostatin Powder) 1 applic TOPICAL 0600,2200 [facility]; Protocol Last Admin: 02/15/19 04:59 Dose: 1 applicatio Documented by: Polyethylene Glycol (Miralax) 17 gm PO DAILY [facility] Last Admin: 02/15/19 05:01 Dose: Not Given Documented by: Potassium Chloride (K-Dur) 20 meq PO DAILYCM [facility] Last Admin: 02/15/19 08:21 Dose: 20 meq Documented by: Senna/Docusate Sodium (Senokot-S, Caitlyn-Colace) 1 tablet PO BID [facility] Last Admin: 02/15/19 05:01 Dose: Not Given Documented by: Discharge Diet: No Restrictions Discharge Activity: Return to Normal Activity, May Shower, Use Walker Weight Bearing Status: Weight bearing as tolerated Call your doctor if you observe: Fever of 101 or Higher, Inability to urinate, Inability to have a bowel movement, Shortness of breath, Chest pain, Uncontrolled pain Home Medications: Medications to take at Discharge Calcium Carbonate/Vitamin D3 [Calcium 600 + Vit D Tablet] 1 tab PO DAILY 05/02/18 Cholecalciferol (Vitamin D3) [Vitamin D3] 2,000 unit PO DAILY 05/02/18 Methotrexate Sodium [Methotrexate] 6 tab PO FLORES 05/02/18 [place]-3 Fatty Acids [Fish Oil] 500 mg PO DAILY 05/02/18 Vit C/Vit E AC/Lut/Copper/Zinc [Preservision Lutein Softgel] 2 each PO BID 05/02/18 Cranberry Fruit [Cranberry] 400 mg PO DAILY 01/28/19 Menthol/Lanolin/Calamine/Znox [Calmoseptine Ointment] 1 applic TOPICAL 0600,2200 tube 02/15/19 Mineral Oil/Petrolatum,White [Eucerin] 1 applic TOPICAL QHS jar 02/15/19 Nystatin Powder [Mycostatin Powder] 1 applic TOPICAL 0600,2200 bottle 02/15/19 Potassium Chloride [K-Dur] 20 meq PO DAILYCM #30 tablet 02/15/19 Following Prescrptions Were Given to Patient: Potassium Chloride [K-Dur] 20 meq PO DAILYCM #30 tablet Primary Care Physician: Noemy Hoskins MD [Primary Care Provider] - Please follow up with your Primary Care Physician in: 1 week. Disposition: Home Minutes spent on discharge:: 30 Patient Condition:: Stable Medical Necessity - Tobacco Use Smoking Status: Never smoker Tobacco Use: Non-smoker Meaningful Use Info Meaningful Use Diagnoses (Choose all that apply): None applicable
--- NOTE | 2019-02-15 17:13 | CASEMGMT ---
Social Work Spoke with patient and about discharge plans. Pt requesting to DC home 02/19 with [facility] Outpatient PT/OT. No DME needs. Carla Ceja, INSTRUCTOR APPAREL MANUFACTURE DRILLING CONTRACTOR
[2019-02-16] MEDS: Menthol/Lanolin/Calamine/Znox 113 GM Tube 1 APPLIC TOPICAL ×2 (05:02→20:22)
[2019-02-16] MEDS: Enoxaparin 40 MG/0.4 ML Syringe SC (05:03)
[2019-02-16] MEDS: Multivitamin (Healthy Eyes) Capsule 1 CAP PO ×2 (05:03→17:05)
[2019-02-16] MEDS: Calcium Carb/Vitamin D 1 TABLET Tablet PO (05:03)
[2019-02-16] MEDS: Nystatin Powder 15gm Bottle 1 APPLIC TOPICAL ×2 (05:05→20:22)
[2019-02-16 15:56] VITALS: BP 129/54; PULSE 85; RESP 17; TEMP 36.6; O2SAT 95
[2019-02-16 20:43] VITALS: BP 136/53; PULSE 95; RESP 16; TEMP 36.8; O2SAT 95
[2019-02-17] MEDS: Enoxaparin 40 MG/0.4 ML Syringe SC (05:53)
[2019-02-17] MEDS: Calcium Carb/Vitamin D 1 TABLET Tablet PO (05:54)
[2019-02-17] MEDS: Multivitamin (Healthy Eyes) Capsule 1 CAP PO ×2 (05:54→17:24)
[2019-02-17] MEDS: Menthol/Lanolin/Calamine/Znox 113 GM Tube 1 APPLIC TOPICAL ×2 (05:57→21:26)
[2019-02-17] MEDS: Nystatin Powder 15gm Bottle 1 APPLIC TOPICAL ×2 (05:58→21:27)
[2019-02-17 10:00] VITALS: PULSE 89; RESP 18; O2SAT 98
[2019-02-17] MEDS: Methotrexate 2.5 MG Tablet 15 MG PO (11:09)
[2019-02-17 16:00] VITALS: BP 134/55; PULSE 85; RESP 17; TEMP 36.7; O2SAT 98
[2019-02-18] MEDS: Enoxaparin 40 MG/0.4 ML Syringe SC (05:59)
[2019-02-18] MEDS: Multivitamin (Healthy Eyes) Capsule 1 CAP PO ×2 (05:59→17:07)
[2019-02-18] MEDS: Menthol/Lanolin/Calamine/Znox 113 GM Tube 1 APPLIC TOPICAL ×2 (05:59→21:22)
[2019-02-18] MEDS: Nystatin Powder 15gm Bottle 1 APPLIC TOPICAL ×2 (06:00→21:30)
[2019-02-18] MEDS: Calcium Carb/Vitamin D 1 TABLET Tablet PO (06:00)
[2019-02-18 15:51] VITALS: BP 130/62; PULSE 90; RESP 16; TEMP 36.8; O2SAT 97
[2019-02-18 21:15] VITALS: RESP 16
[2019-02-19] MEDS: Enoxaparin 40 MG/0.4 ML Syringe SC (05:34)
[2019-02-19] MEDS: Multivitamin (Healthy Eyes) Capsule 1 CAP PO (05:37)
[2019-02-19] MEDS: Calcium Carb/Vitamin D 1 TABLET Tablet PO (05:37)
[2019-02-19] MEDS: Menthol/Lanolin/Calamine/Znox 113 GM Tube 1 APPLIC TOPICAL (05:38)
[2019-02-19] MEDS: Nystatin Powder 15gm Bottle 1 APPLIC TOPICAL (05:39)
[2019-02-19 09:00] VITALS: PULSE 87; RESP 18; O2SAT 97
[2019-02-19 12:51] VITALS: BP 128/58; PULSE 84; RESP 18; TEMP 37; O2SAT 95
== END 2019-02-19 10:15 | disposition home or self-care (01) | DRG 690 ==
PROVIDERS: Admitting Provider Family Medicine Geriatric Medicine; Family Provider Internal Medicine; PCP Internal Medicine; Referring Provider Family Medicine Geriatric Medicine; Visit Provider Family Medicine Geriatric Medicine
DX: N39.0 Urinary tract infection, site not specified (principal); G81.91 Hemiplegia, unspecified affecting right dominant side; H35.30 Unspecified macular degeneration; G35 Multiple sclerosis; E55.9 Vitamin D deficiency, unspecified; Z23 Encounter for immunization
CPT/HCPCS: 36415; 80048; 85025; 92507; 92523; 97110; 97116; 97162; 97166; 97530; 97535; 97802; 99251; G0009; 90670; G0463; J8610

== ENCOUNTER 2019-02-27 08:54 | Outpatient (RCR) | payer MEDICARE, OTHER, SELFPAY ==
[2019-01-31 16:35] VITALS: BMI 33.1
--- NOTE | 2019-02-27 10:20 | HP.OTEVAL_ITS ---
Patient's Visit Information BRODY QUINTERO is a 78 year old F, referred to Occupational Therapy by Garret Hogue MD, with a diagnosis of Debility. Date of Evaluation: 02/27/19 Occupational Therapist: Merced Umanzor, OTR/L - Subjective Subjective: Brody arrived with , Kevin. noted that she was in [facility] due to UTI that went septic. She had OT and PT while in hospital. She spent time on the TCU unit. They noted that she is getting close to baseline but still showing signs of debility. For functional mobility purposes she uses a manual w/c for longer distances, but they also have scooter, and rollator. Brody noted she uses rollator around home. Brody further noted some increased pain in R s houlder on occasion. She does have R sided numbness is UB and LB due to MS. She was diagnosed with MS about 20 years ago. Her goal for therapy is to continue to improve and promote returning to [facility] with 2x weekly outing to local [facility] for training. - ADLs Dressing: Pants, Socks, Shoes Fasteners: Buttons, Zippers Eating: Use silverware, Cut food, Butter bread Bathing: Handle washcloth & soap Toileting: Manage clothing Miscellaneous: Use cell phone, Open medication bottle, Write - ROM Shoulder: PROM R 0-100; AROM R 0-45 degrees; L WFL Elbow: WFL Forearm: WFL Wrist: WFL ROM Comments: Some increased weakness and tone discrepancies noted of R UE. - Strength Pole Setter: flexed position 2 R 15, L 43; ext positon 2 R 23, L 41 Lateral Pinch: R 2, L 6 Tripod Pinch: R unable, L 6 Tip-to-Tip Pinch: R unable , L 3 - Sensation Thumb: R 3.84, L 3.84 Index: R 3.61, L 2.83 Middle: R 4.08, L 3.22 Ring: R 2.83, K 3.84 Little: R 4.08, L 3.61 Sensation Comments: Baseline sensory deficits due to MS on RUE. - Cognitive Skills Follows Directions: Yes - Attention Attention: Normal - Balance Static Sitting: G - Quick DASH-Disab of Arm,Shoulder& Hand Quick DASH Score: 56.8175 - Goals Goal:: Brody to increased B study lead by 15 lbs to promote increased strength and endurance of B UE needed to complete ADL/IADls by d/c. Goal:: Brody to increase ability to complete R shoulder PROM by 15 degress of passive movement 4/5 trials 80% of the time to promote increased mobility and decreased pain mangement. Goal:: Brody to be (I) to comolete B UE exercsies to promote increased ROM of R UE to help decrease paina nd stiffness 4/5 trials 80% of the time by d/c. Goal:: Brody to complete tone management techniques to promote increased ROM and ability to use R hand for ADl/IADls by d/c. Goal:: Brody to be mod I to complete all UB and LB ADls to promote increased ROM and strength needed to complete daily tasks 4/5 trials 80% of the time by d/c. Goal:: Brody to be (I) to complete daily HEP to promote increased strength and stability of R UE and general conditioning to promote return to ADL/IADls 4/ 5tirals 80% of the time by d/c. - Rehabilitation General Assessment: Brody is 78 y/o woman with a significant PMHx for MS. She has a recent hospital stay at [facility] while completing rehabilitation on the TCU to promote transitioning back home s/p UTI with sepsis. For baseline she is active and completes [facility] working with a system trainer for an hour each time. She is nearing baseline but noted continue weakness more than what is MS related. She presented with increased ROM deficits on R UE specifically at the shoulder with increased tone irregulars of r hand and wrist. Skilled OT warranted to address ROM, strengthening, self - care, and general ability to complete tasks at [facility] for all ADl/IADls. Rehabilitation Potential: Good - Anticipated Interventions Anticipated Interventions: A/AAROM/PROM, Strengthening, Massage, Modalities, Orthoses, Joint Protection/Energy Conservation, Ergonomic Education, Dynamic Sitting Balance, Fine Motor Coord/[place], Neuro Reeducation, Sensory Stimulation, Cognitive Skills, ADL Training, Education re assistive Equipment, Caregiver Training, Home Program - Visit Plan Frequency: 2x /Week Duration: 4 Weeks General Plan: Brody to complete skilled OT services to promote increased ROM and strengthening, ergonomic and energy concersation, splinting as needed, and increased ability to complete ADL/IADLs. TEXT: Thank you for the opportunity to evaluate your patient. For Medicare and Medicare HMO plans, please review the plan of care and approve it. It will need to be FAXED BACK to us at [phone] for Medicare purposes. Please let me know if there are questions or concerns regarding this plan of care. Physician Signature: Date:
--- NOTE | 2019-02-27 12:30 | HP.PTEVAL ---
Patient's Visit Information BRODY QUINTERO is a 78 year old F referred to Physical Therapy by Garret Hogue MD with a diagnosis of Debility/ MS. Date of Evaluation: 02/27/19 Physical Therapist: RIVAS Phan - Visit Plan Frequency: 2x /Week Duration: 4 Weeks Plan: 2X/ week for 4 weeks for gait mechainics, endurance, LE strength, functional transfers (stairs, supine to S/L transfers), balance with HEP - Subjective Findings: Pt has MS. She was in the hospital for UTI and sepsis and she was on TCU for 2 weeks. SHe uses a rollator at home and has a hospital bed. SHe does not do stairs. SHe has an AFO on her R foot. She can get in and out of bed at home one her own with the hospital bed. She can sit to stand with the use of her hands. - Objective Gait: Walks with a rollator with step 2 gait pattern and she tends to drag her R foot and advances it using her R hip adductors and shoe drags along the ground. Standing balance: she is able to stand for about 20 seconds without UE support with a lot of coaxing and able to turn her head R and L slowly and look up with CONTACT guard assist and a lot of encouragement. Sit to stand: able using the arm of the chair and her R arm on her rollator with her COG more retro. Supine to sit with MOD A for legs and UE/trunk. Pt had very high anxiety about rolling from supine to either S/L and only able to get to about 1/4 of the roll due to anxiety. LE MMT: R hip flex 3-/5, L hip flex 3+/5, R knee ext 3+/5 and L knee ext 4/5, R knee flex 3+/5 and L 4-/5, Pt is able to 1/4 normal ROM bridge. Pt has tight HS and gastroc B ( AFO on the R) - Goals Goal 1:: I HEP Goal Time Frame: 4-6 Weeks Goal 2:: Be able to get from supine to supine to S/L to sit with min A Goal Time Frame: 4-6 Weeks Goal 3:: Be able to walk with less foot drag and less R hip adduction Goal Time Frame: 4-6 Weeks Goal 4:: Be able to stand unsupported for 60 seconds with head turns witout LOB Goal Time Frame: 4-6 Weeks Goal 5:: Increase Le strength by 1/2 muscle grade to improve overall function ( at time of eval: LE MMT: R hip flex 3-/5, L hip flex 3+/5, R knee ext 3+/5 and L knee ext 4/5, R knee flex 3+/5 and L 4-/5, Pt is able to 1/4 normal ROM bridge). Goal Time Frame: 4-6 Weeks - Rehabilitation Potential Rehabilitation Potential: Good - Anticipated Interventions Patient/Client Instruction: Educate patient on: Condition, Plan of Care For the Purpose of:: To improve muscle performance and motor function, To improve ability to perform ADL's, To increase tolerance to activity/condition/position, To improve performance and independence with ADL's, To decrease level of supervision to perform tasks, To improve ability of physical actions for home/community/work/leisure, To improve gait and locomotor functions, To improve endurance, To improve balance, To improve safety with gait Therapeutic Exercise to Include: Strength training, Balance training, Flexibilty training, Gait and locomotor training, Active ROM For the Purpose of:: To improve ability to perform ADL's, To increase tolerance to activity/condition/position, To improve performance and independence with ADL's, To improve gait and locomotor functions, To improve endurance, To improve balance, To improve safety with gait Functional Training to Include: Gait training For the Purpose of:: To improve gait and locomotor functions, To improve safety with gait Thank you for the opportunity to evaluate your patient. For Medicare and Medicare HMO plans, please review the plan of care and approve it. It will need to be FAXED BACK to us at [phone] for Medicare purposes. For Medicare only, by signing this I certify the plan of care. Please let me know if there are questions or concerns regarding this plan of care. Physician Signature: Date:
--- NOTE | 2019-03-14 14:11 | HP.PT.NRP ---
HP - Discharge Summary (1) - Patient Information BRODY QUINTERO was seen in my office for initial evaluation on 02/27/19. The following Plan of Care was established for this patient: Initial Frequency: 2x /Week Initial Duration: 4 Weeks - Anticipated Interventions Patient/Client Instruction: Educate patient on: Condition, Plan of Care For the Purpose of:: To improve muscle performance and motor function, To improve ability to perform ADL's, To increase tolerance to activity/condition/position, To improve performance and independence with ADL's, To decrease level of supervision to perform tasks, To improve ability of physical actions for home/community/work/leisure, To improve gait and locomotor functions, To improve endurance, To improve balance, To improve safety with gait Therapeutic Exercise to Include: Strength training, Balance training, Flexibilty training, Gait and locomotor training, Active ROM For the Purpose of:: To improve ability to perform ADL's, To increase tolerance to activity/condition/position, To improve performance and independence with ADL's, To improve gait and locomotor functions, To improve endurance, To improve balance, To improve safety with gait Functional Training to Include: Gait training For the Purpose of:: To improve gait and locomotor functions, To improve safety with gait This patient was last seen in our office 02/27/19. Pertinent comments regarding their Physical therapy will appear below: [facility]IS[facility] PT. Pt cancelled all appointments At this point I will be discontinuing this patient from physical therapy. I would be happy to see this patient again in the future if found appropriate by the physician. Thank you! Oma Acuna, MPT
== END 2019-02-27 19:00 | disposition home or self-care (01) ==
LOC: OT 08:54
PROVIDERS: Family Provider Internal Medicine; PCP Internal Medicine; Referring Provider Family Medicine Geriatric Medicine; Visit Provider Family Medicine Geriatric Medicine
DX: R53.81 Other malaise (principal)
CPT/HCPCS: 97161; 97166

== ENCOUNTER 2019-07-18 06:42 | Emergency (ER) | payer MEDICARE, OTHER, SELFPAY ==
[2019-01-31 16:35] VITALS: BMI 33.1
[2019-07-18 06:44] VITALS: BP 155/89; PULSE 120; RESP 18; TEMP 36.8; O2SAT 97; BMI 34.9
--- NOTE | 2019-07-18 07:07 | RAD_ITS ---
STUDY: X-RAY CHEST REASON FOR EXAM: Female, 78 years old. pt. Fell, laceration to posterior head, SOB TECHNIQUE: AP upright portable view COMPARISON: 01/28/2019. FINDINGS: Bilateral pulmonary hyperinflation. The lungs are clear. There is no demonstrated pleural abnormality. Normal size heart. Normal mediastinum and terri. Normal visualized pulmonary arteries. Normal visualized aortic arch and descending thoracic aorta. Normal visualized thoracic spine. Normal visualized ribs, clavicles, and shoulders. There is no demonstrated abnormality of the visualized soft tissue structures of the upper abdomen. RAD/Chest 1 View (Portable) IMPRESSION: Normal x-ray examination of the chest and unchanged when compared to 01/28/2019. Electronically Signed: James Barajas MD at 8:09 EDT , Service support ,
--- NOTE | 2019-07-18 07:07 | EKG12_ITS ---
Test Reason : FALL Blood Pressure : / mmHG Vent. Rate : 110 BPM Atrial Rate : 110 BPM P-R Int : 168 ms QRS Dur : 092 ms QT Int : 360 ms P-R-T Axes : 089 014 049 degrees QTc Int : 487 ms Sinus tachycardia with occasional Premature ventricular complexes Moderate voltage criteria for LVH, may be normal variant Nonspecific T wave abnormality Abnormal ECG Confirmed by KIKI HEBERT ([id number]), industrial editor TEJ KENT ([id number]) on 07/22/2019 2:50:35 PM Referred By: [place] Confirmed By:KIKI HEBERT
--- NOTE | 2019-07-18 07:10 | ED.VISSUMM ---
- ER Visit Summary Date of Service: 07/18/19 Chief Complaint: Fall History of Present Illness: The patient is a [address] Hoskins. She reports that she has a history of multiple sclerosis. Today she was standing up out of a chair lost her balance and fell. She hit her head on a ceramic gallop. No loss of consciousness. He is not on anticoagulants. She denies a headache. She did suffer a laceration. She is unsure when her last tetanus shot was. Patient denies any other injuries. No neck, back, shoulder, wrist, or hip pain. Patient does report that she has been mildly short of breath since the fall. She denies any chest pain. She denies any blow to the chest. No fever, chills, cough, palpitations. Her review of systems is otherwise negative. Physical Examination: Vitals: Stable. Afebrile. Head: 3 cm laceration occipital scalp with minimal active bleeding. Neck: No vertebral tenderness. Full ROM without difficulty. Cleared by NEXUS criteria. Back: No vertebral tenderness. General: A&O x 3. NAD. Cardiovascular exam: Tachycardic regular rhythm, no murmur, rub or gallop. Respiratory exam: Chest nontender. No crepitus. Clear to auscultation bilaterally. No wheezes or stridor. Abdominal exam: Soft, nontender, nondistended, normal bowel sounds. No pain in RUQ or LUQ specifically. No peritoneal signs. Extremity: Atraumatic. No pain with range of motion. Test Results: EKG is sinus tach at 110 with PVCs. This is unchanged from April 2018. Troponin is negative. Lactic acid is 1.0. TSH is 3.1. UA shows 10-21 5 white blood cells, but no bacteria. Coags are normal. Chem-7 shows a chloride of 109. CBC shows lymphocytes of 17 monocytes of 12. Chest x-ray shows no acute disease. Emergency Department Course and Treatment: Patient had an IV placed. She was given a 500 cc bolus of normal saline. She is given Tylenol p.o. She had her tetanus updated. Her laceration was anesthetized and repaired. She tolerated this well. Treatment Plan: Patient feels well and would like to go home. She will be discharged instructions to follow-up with her primary care physician in 10 to 14 days for staple removal. Return to the emergency department for any worsening symptoms. Disposition: To home in improved and stable condition. Impression: 1. Fall. 2. Scalp laceration, 3 cm, repaired. 3. Sinus tachycardia. Procedure note: Wound was cleansed with chlorhexidine soap. Anesthetized with 1% lidocaine without epinephrine. Copiously irrigated with normal saline. Wound was explored there is no foreign material present. It was closed with 7 stephani. The patient tolerated it well. This note was generated with [employer] dictation software. It may contain incorrect words, spelling, and punctuation that were not noted in review of the chart prior to signing ED Disposition - Plan for ED Patient: Instructions: ED Laceration Scalp Sutures or [place] Referrals: Noemy Hoskins MD [Primary Care Provider] - 10-14 Days suture removal
[2019-07-18] MEDS: Acetaminophen 500 MG Tablet 1000 MG PO (07:23)
[2019-07-18 07:33] LABS: Bacteria 0 SEEN /hpf (None Seen); Mucous, Urine 0 SEEN /hpf (<or=2+)
[2019-07-18 07:44] LABS: Color, Urine Straw (Yellow); Glucose, Dipstick Normal (Normal); Ketone-Dipstick Negative (Negative); Leukocyte Esterase-Dipstick 100 /ul (Negative); Nitrite-Dipstick Negative (Negative); Occult Blood-Urine 10 /ul (Negative); Protein-Dipstick Negative (Negative); Specific Gravity, Urine 1.015 (1.002-1.030); Urine Bilirubin Dipstick Negative (Negative); Urine Clarity Clear (Clear); Urine Urobilinogen Normal (Normal)
[2019-07-18 08:02] LABS: Absolute Lymphocyte Count 0.85 X10^3/uL (0.83-4.51); Absolute Neutrophil Count 3.1 X10^3/uL (2.0-7.7); Eosinophil# 0.22 X10^3/uL; Eosinophils% 4.5 % (0-5); Hematocrit 40.6 % (37-47); Hemoglobin 13.4 g/dL (12.0-15.0); Lymphocyte # 0.85 X10^3/ul (4.0); Lymphocyte % 17.4 % (19-41); Mean Corpuscular Hgb 31.9 pg (27.0-32.0); Mean Corpuscular Volume 96.7 fL (81-99); Mean Platelet Vol. 10.1 fl (6.2-12.0); Monocyte# 0.63 X10^3/uL; Monocyte% 12.9 % (0-10); NRBC Flagged by Analyzer 0 % (0-5); Neutrophil # 3.07 X10^3/uL (2.7-7.7); Platelet Count 170 K/mm3 (150-450); RBC Distribution Width SD 52.9 fl (35.1-43.9); White Blood Count 4.9 K/mm3 (4.4-11.0)
[2019-07-18 08:03] LABS: Red Blood Cells-Urine 0-5 SEEN /hpf (0-5); Squamous Epithelial Cells - UA 0-5 SEEN /hpf (5-10); White Blood Cells 10-25 SEEN /hpf (0-5)
[2019-07-18 08:15] LABS: Prothrombin Time (Protime)PT. 12.9 SECONDS (11.7-14.9)
[2019-07-18 08:16] LABS: Partial Thromboplast Time 34.7 Seconds (24.1-36.2)
[2019-07-18] MEDS: Diphth,Pertuss(Acell),Tet Vac 0.5 ML Vial IM (08:17)
[2019-07-18 08:26] LABS: AST(SGOT) 23 U/L (15-37); Alanine Aminotransfer ALT/SGPT 22 U/L (13-56); Albumin, Serum 3.5 g/dL (3.2-5.0); Alkaline Phosphatase 83 U/L (45-117); Anion Gap 7 (5-15); BUN 16 mg/dL (7-18); BUN/Creat Ratio 24.5 RATIO (10-20); Chloride 109 mmol/L (98-107); Creatinine, Serum 0.65 mg/dL (0.55-1.02); EST Glomerular Filtration Rate 94 mL/min (>60); Est Glom Filt Rate - Afr Amer 113 mL/min (>60); Estimated Creatinine Clearance 39.59 ml/min; Globulin 3.6 g/dL (2.2-4.2); Glucose 98 mg/dL (74-106); Potassium 3.5 mmol/L (3.5-5.1); Protein, Total 7.1 g/dL (6.4-8.2); Sodium Level 144 mmol/L (136-145)
[2019-07-18 08:43] VITALS: BP 168/67; PULSE 109; RESP 12
[2019-07-18 09:40] VITALS: BP 157/87; PULSE 116; RESP 18
== END 2019-07-18 10:03 | disposition home or self-care (01) ==
LOC: ED 07:07
PROVIDERS: Emergency Provider Emergency Medicine; PCP Internal Medicine
DX: S01.01XA Laceration without foreign body of scalp, initial encounter (principal); R00.0 Tachycardia, unspecified; R06.02 Shortness of breath; G35 Multiple sclerosis; Z23 Encounter for immunization; Z79.899 Other long term (current) drug therapy; W07.XXXA Fall from chair, initial encounter; Y93.89 Activity, other specified; Y92.89 Other specified places as the place of occurrence of the external cause; Y99.8 Other external cause status
CPT/HCPCS: 12002; 71045; 80053; 81001; 83605; 84443; 84484; 85025; 85610; 85730; 87077; 87086; 87088; 87186; 90471; 90715; 93005; 96360; 99285; J7040

== ENCOUNTER → 2019-12-03 | Outpatient (CLI) | payer MEDICARE, OTHER, SELFPAY | END | disposition home or self-care (01) | LOC: LABSPEC 16:34 | PROVIDERS: PCP Internal Medicine; Referring Provider Nurse Practitioner Adult Health; Visit Provider Nurse Practitioner Adult Health | DX: N39.0 Urinary tract infection, site not specified (principal) | CPT/HCPCS: 87077; 87086; 87088; 87186 ==

== ENCOUNTER → 2020-02-04 11:16 | Outpatient (CLI) | payer MEDICARE, OTHER, SELFPAY | PROVIDERS: PCP Internal Medicine; Referring Provider Nurse Practitioner Adult Health; Visit Provider Nurse Practitioner Adult Health | DX: R35.0 Frequency of micturition (principal) | CPT/HCPCS: 87077; 87086; 87088; 87186 ==

== ENCOUNTER → 2020-03-25 | Outpatient (CLI) | payer MEDICARE, OTHER, SELFPAY | END | disposition home or self-care (01) | LOC: LABSPEC 09:08 | PROVIDERS: PCP Internal Medicine; Referring Provider Nurse Practitioner Adult Health; Visit Provider Nurse Practitioner Adult Health | DX: R30.0 Dysuria (principal) | CPT/HCPCS: 87077; 87086; 87088; 87186 ==

== ENCOUNTER 2020-04-27 10:10 | Emergency (ER) | payer MEDICARE, OTHER, SELFPAY ==
[2020-04-27 10:11] VITALS: BP 143/99; PULSE 104; RESP 15; TEMP 35.9; O2SAT 98; BMI 30.1
--- NOTE | 2020-04-27 10:35 | VDLE_ITS ---
Reason For Study: RLE pain RIGHT GSV is normal. CFV is compressible, spontaneous, phasic, competent and demonstrates normal augmentation. FV is compressible, spontaneous, phasic, competent and demonstrates normal augmentation. POP V is compressible, spontaneous, phasic, competent and demonstrates normal augmentation. T/P Trunk is compressible. PTV is compressible. RT PerV is compressible. NON-vascular structure noted in the medial/proximal calf area measuring 1.2 x 0.58 cm in transverse. Same NON-vascular structure in longitudinal runs from proximal to mid anterior calf with a max diameter of 0.56cm. Procedure This is a venous duplex using B-mode, color flow and spectral Doppler. Exam performed portable in ED. The study was technically difficult. Due to MS. The exam was diagnostic. A preliminary report was called and/or faxed to Dr. Apodaca @ 11 am. Interpretation Summary There is no evidence of right lower extremity deep vein thrombosis. Right great saphenous vein appears patent and compressible segmentally. 1.2 x 0.58 cm longitudinal right medial proximal calf to mid anterior calf nonvascular structure of undetermined etiology. Complex cystic fluid suspected. Clinical correlation would be appropriate. Ordering Physician: Matthew Apodaca Referring Physician: Noemy Hoskins Performed By: Kristie Arriaga, SULY, RVT
--- NOTE | 2020-04-27 10:36 | ED.VIS.GEN ---
History of Present Illness Chief Complaint: Lower Extremity Injury Informant: Patient Narrative: 79-year-old female presenting with right calf pain. She states is been painful since . Patient states she is on antibiotics for UTI and looked up the side effects and thought maybe this was causing her right leg pain. Patient called to the nurse physician interventional cardiologist at the urologist office who sent her to the ED for ultrasound of the right leg. Patient has no history of DVT/PE. She is not on blood thinners. She takes no exogenous hormones. She not having chest pain, palpitations, shortness of breath. - Past Medical History (1) Multiple sclerosis Status: Chronic Past Medical History - Allergies and Home Meds Allergies/Adverse Reactions: Allergies aspirin Adverse Reaction (Verified 01/28/19 08:47) Other pt states she is not to take aspirin due to being on methotrexate Primary Care Physician: Noemy Hoskins MD [Primary Care Provider] - Prior records reviewed: Yes Past Medical History: - - Reviewed in problem list Surgical History: no surgical history Lives: Spouse/ Significant Other Smoking Status: Never smoker Alcohol: None Drugs: None - Family History Maternal Family History: Reports: No pertinent history Review of Systems General: Denies: Chills, Fever, Sweats Eyes: Denies: Visual changes - bilaterally, Diplopia ENT: Denies: Rhinorrhea, Sore throat Cardiovascular: Denies: Chest pain, Palpitations Respiratory: Denies: Dyspnea, Cough, Dyspnea on exertion Gastrointestinal: Denies: Abdominal pain, Nausea, Vomiting, Diarrhea, Melena, Hematochezia Genitourinary: Denies: Dysuria, Hematuria, Frequency Musculoskeletal: Reports: Extremity Pain - Left calf pain. Denies: Swelling Skin: Denies: Rash, Wounds Neurological: Denies: Headache, Weakness, Numbness Psych: Denies: Depression, Anxiety Physical Exam Vital Signs/Narrative: Vital Signs Temp Pulse Resp BP Pulse Ox 04/27/20 10:11 96.6 F L 104 H 15 143/99 H 98 Inital Vital Signs reviewed: Yes General: Well nourished, Well developed, No Acute Distress Head: Normocephalic, Atraumatic ENT: Moist mucous membranes, No rhinorrhea Cardiovascular: Regular rate, Regular rhythm Extremities: No edema, Calf Tenderness - Right calf tenderness no cords palpated. Skin: Normal color, No rash Neurological: Alert, Oriented x3 Psychological: Normal affect, Normal Mood Diagnostic/Tx/Re-eval - Medical Decision Making Patient presenting with right calf pain. She does not have any numbness or tingling. Her right leg is neurovascular intact. Patient is still ambulatory. She had DVT study of the right leg which shows no acute DVT. Patient counseled of the findings. Patient denied any analgesia in the ER. Patient counseled alternate ice and heat as well as use compression. She will follow-up with her PCP to ensure resolution. Impression: 1. Right calf strain ED Disposition - Plan for ED Patient: Referrals: Noemy Hoskins MD [Primary Care Provider] -
== END 2020-04-27 11:17 | disposition home or self-care (01) ==
LOC: ED 11:15
PROVIDERS: Emergency Provider Student in an Organized Health Care Education/Training Program; PCP Internal Medicine
DX: S86.111A Strain of other muscle(s) and tendon(s) of posterior muscle group at lower leg level, right leg, initial encounter (principal); N39.0 Urinary tract infection, site not specified; Z79.2 Long term (current) use of antibiotics; X58.XXXA Exposure to other specified factors, initial encounter; Y93.89 Activity, other specified; Y92.89 Other specified places as the place of occurrence of the external cause; Y99.8 Other external cause status
CPT/HCPCS: 93971; 99282; A4216

== ENCOUNTER → 2020-06-26 09:54 | Outpatient (CLI) | payer MEDICARE, OTHER, SELFPAY ==
--- NOTE | 2020-06-26 09:56 | BI_ITS ---
MAMMOGRAPHY - BILATERAL SCREENING REASON FOR EXAM: Female, 79 years old. Routine annual screening examination. PERTINENT HISTORY: Non-contributory. TECHNIQUE: Digital bilateral breast rox (3D mammographic acquisition) in the CC and MLO projections. 2-D mediolateral oblique (MLO) and craniocaudad (CC) views of both breasts were obtained. CAD: Full Field Digital Mammography with Computer Added Detection was performed. COMPARISON: Comparison is made with prior study dated 05/11/2018 12/05/2016. FINDINGS: Breast Composition: There are scattered areas of fibroglandular density. There are no dominant masses or suspicious calcifications. No other significant abnormalities are identified. There has been no significant change since the prior study. BI/SCRN MAMM (CAD)W/ROX BILAT IMPRESSION: Stable bilateral screening mammogram. Yearly follow-up mammogram recommended. (A) ASSESSMENT CATEGORY: BIRADS Category 1: Negative. A letter regarding these results will be sent to the patient by the facility within 30 days. Approximately 10% of breast cancers are not detected by mammography. A normal mammogram should not delay biopsy of a clinically suspicious abnormality. [id number] Electronically Signed: Cisco Wallace MD at 11:00 EDT , Service support ,
== END ==
PROVIDERS: PCP Internal Medicine; Referring Provider Internal Medicine; Visit Provider Internal Medicine
DX: Z12.31 Encounter for screening mammogram for malignant neoplasm of breast (principal)
CPT/HCPCS: 77063; 77067

== ENCOUNTER 2020-11-18 06:10 | Day surgery (SDC) | payer MEDICARE, OTHER, SELFPAY ==
[2020-11-18] VITALS (7 sets, daily range): BP systolic 98–163; BP diastolic 46–82; PULSE 94–102; RESP 16–18; TEMP 36.1–37.7; O2SAT 94–98; BMI 29.7
[2020-11-18] MEDS: Lactated Ringers 1,000 ML 100 ML IV (07:04)
[2020-11-18] MEDS: Cefazolin 2 GM in 0.9% Normal Saline 100 ML IV (08:06)
[2020-11-18] MEDS: 0.9% Normal Saline (Pres. free 10 ML Vial (08:22)
--- NOTE | 2020-11-18 08:32 | OP.PCM_ITS ---
Report of Operation Date of Procedure: 11/18/20 Pre-Operative Diagnosis: Urge incontinence Post-Operative Diagnosis: Same Surgery/Procedure Performed:: Cystoscopy injection of Botox 100 units Description of Surgical Findings:: Patient was taken back to the operating room after smooth induction of anesthesia she was placed in dorsolithotomy position. I went into the bladder with a 19 Pakistani offset cystoscope, the entire bladder was normal there was some cystitis cystica but no tumors or stones the trigone is normal identify the left ureteral orifice this was normal I then prepared 100 units of Botox in the back table and then using the needle through the scope we injected the muscle of the bladder and over 10 sites in the back of the bladder with about half cc in each site for a total of 100 units of Botox given to the bladder. There was minimal bleeding from the injection sites the bladder was drained patient anesthetic was versed taken back to PACU in good condition we will see her back in about 6 weeks for checkup. Surgeon: mague Type of Anesthesia: General Drains: none Admit VTE Documentation VTE Present on Admission: No VTE Mechan Device Prophylaxis: SCD's
--- NOTE | 2020-11-18 08:33 | PCM.DC ---
Discharge Instructions Diet Discharge Diet: No restrictions Activity Discharge Activity: Return to Normal Activity and May Not Drive (while taking narcotic pain medications.) Dressing / Incision Call your doctor if you observe: Fever of 101 or Higher Follow Up Care Please Follow Up With: Darin Loo MD When: Call [phone] for an appointment Test Results: Test results from this visit will be discussed in further detail at your follow-up appointment, if applicable. Discharge Plan Admission Primary Reason for Your Visit: botox injection 100 U Attending Provider: Darin Loo Primary Care Provider: Noemy Hoskins Discharge Orders/Prescriptions Prescriptions: Continued methotrexate sodium 2.5 MG tablet 6 tab PO FLORES RF: 0 PreserVision Lutein 1 EACH capsule 2 ea PO BID RF: 0 Calcium 600 + D(3) 1 EACH tablet 1 tab PO DAILY RF: 0 Fish Oil 500 MG capsule,delayed release(DR/EC) 500 mg PO DAILY RF: 0 cholecalciferol (vitamin D3) [Vitamin D3] 2,000 UNIT capsule 2,000 unit PO DAILY RF: 0 cranberry fruit 400 MG tablet 400 mg PO DAILY RF: 0 folic acid 1 mg Tablet 0.8 mg PO DAILY RF: 0 Myrbetriq 50 mg tablet extended release 24 hr 50 mg PO DAILY RF: 0 ciprofloxacin HCl [Cipro] 500 mg tablet 500 mg PO BID RF: 0 Referrals / Follow Up: Darin Loo MD [STAFF PHYSICIAN] - Noemy Hoskins MD [Primary Care Provider] - Disposition Disposition (needs filled in before D/C Order can be placed): Home, Self Care
== END 2020-11-18 09:49 | disposition home or self-care (01) ==
LOC: SDC 06:12 → AC 06:13
PROVIDERS: PCP Internal Medicine; Referring Provider Urology; Visit Provider Urology
PROC: 3E0K8GC Introduction of Other Therapeutic Substance into Genitourinary Tract, Via Natural or Artificial Opening Endoscopic (ICD-10-PCS; CPT 52287; principal; 2020-11-18 08:10)
DX: N39.41 Urge incontinence (principal); N32.81 Overactive bladder; N30.80 Other cystitis without hematuria; G35 Multiple sclerosis; Z79.899 Other long term (current) drug therapy; Z99.3 Dependence on wheelchair
CPT/HCPCS: 00910; 52287; J7120; J0585; J2405; J3490

== ENCOUNTER 2021-04-20 12:08 | Outpatient (CLI) | payer MEDICARE, OTHER, SELFPAY | END 2021-04-20 23:59 | disposition home or self-care (01) | LOC: LABSPEC 12:12 | PROVIDERS: PCP Internal Medicine; Referring Provider Urology; Visit Provider Urology | DX: N30.20 Other chronic cystitis without hematuria (principal) | CPT/HCPCS: 87077; 87086; 87088; 87186 ==

== ENCOUNTER 2021-05-03 11:12 | Outpatient (CLI) | payer MEDICARE, OTHER, SELFPAY | END 2021-05-03 23:59 | disposition home or self-care (01) | LOC: LAB 11:13 | PROVIDERS: PCP Internal Medicine; Visit Provider Urology | DX: N30.20 Other chronic cystitis without hematuria (principal) | CPT/HCPCS: 87086; 87088 ==

== ENCOUNTER 2021-05-13 11:49 | Outpatient (CLI) | payer MEDICARE, OTHER, SELFPAY | END 2021-05-13 23:59 | disposition home or self-care (01) | LOC: LABSPEC 11:50 | PROVIDERS: PCP Internal Medicine; Referring Provider Urology; Visit Provider Urology | DX: N30.20 Other chronic cystitis without hematuria (principal) | CPT/HCPCS: 87086; 87088 ==

== ENCOUNTER 2022-01-29 16:14 | Emergency (ER) | payer MEDICARE, OTHER, SELFPAY ==
[2022-01-29] VITALS (9 sets, daily range): BP systolic 104–190; BP diastolic 85–112; PULSE 85–129; RESP 16–20; TEMP 36.9; O2SAT 95–100; BMI 28.5
--- NOTE | 2022-01-29 16:16 | CT_ITS ---
We are attempting to reach an attending provider to discuss findings. An addendum with communication details will be sent when the communication is complete. STUDY: CT BRAIN WITHOUT CONTRAST REASON FOR EXAM: Female, 81 years old. Neuro deficit, acute, stroke suspected RADIATION DOSAGE (If Supplied By Facility): CTDIvol = ( ) mGy, DLP = ( 812.98 ) mGycm TECHNIQUE: Transaxial CT imaging of the brain was performed without administration of intravenous contrast material. Individualized dose optimization techniques were used for this CT. COMPARISON: No relevant priors. FINDINGS: Normal soft tissue structures. Normal calvarium. There is moderate cerebral atrophy with widening of the extra-axial spaces and ventricular dilatation. There are areas of decreased attenuation within the white matter tracts of the supratentorial brain, consistent with microvascular disease changes. Normal basal ganglia and thalami. Normal brainstem. Normal cerebellum. Intraparenchymal hemorrhage is noted in the high frontal and parietal lobe measuring 7.2 x 3.8 cm in transverse dimensions. There is local edema and 7 mm midline shift. No intraventricular or extra-axial hemorrhage is identified. No tentorial or tonsillar herniation noted. There are no findings of an acute ischemic infarction. Normal visualized paranasal sinuses. CT/STROKE Brain/Head without Cont IMPRESSION: Large left frontoparietal intraparenchymal hemorrhage and subfalcine herniation Electronically Signed: Koby Berry MD at 16:34 EST ,
--- NOTE | 2022-01-29 16:16 | EKG12_ITS ---
Test Reason : STROKE Blood Pressure : / mmHG Vent. Rate : 102 BPM Atrial Rate : 102 BPM P-R Int : 178 ms QRS Dur : 120 ms QT Int : 396 ms P-R-T Axes : 060 -02 099 degrees QTc Int : 516 ms Sinus tachycardia with frequent Premature ventricular complexes Incomplete left bundle branch block Nonspecific ST and T wave abnormality Abnormal ECG Confirmed by MARVIN BLOCK, TAMIKO ([id number]), videotape editor ULI LORA ([id number]) on 02/01/2022 8:05:17 AM Referred By: SUHA Confirmed By:TAMIKO WONG MD
--- NOTE | 2022-01-29 16:18 | ED.VIS.STROK ---
HPI History of Present Illness Chief Complaint: Stroke Alert Narrative Narrative: 81-year-old female presenting with strokelike symptoms. Patient last seen well at 3:20 PM. She has slurred speech and is leaning to the right. She is not moving the right side of her body. She appears confused. She has a history of MS. She is not on any blood thinners that she knows of. Unable to get significant history due to her mental status. She is able to speak. She is not able to lift her head up off of the right side of the bed. [facility] Medical History Bladder disease Multiple sclerosis Non-smoker Post-menopausal Walker as ambulation aid Wears glasses Home Medications calcium carbonate-vitamin D3 600 mg-125 unit tablet (Calcium) 1 tab PO DAILY supplement 05/02/18 [History Last Taken 11/17/20] cholecalciferol (vitamin D3) 50 mcg (2,000 unit) capsule (Vitamin D3) 2,000 unit PO DAILY supplement 05/02/18 [History Last Taken 11/17/20] methotrexate sodium 2.5 mg tablet 6 tab PO FLORES MS 05/02/18 [History Last Taken 11/15/20] omega 3-dha 60 mg-epa 90 mg-fish oil 500 mg capsule, delayed release (Fish Oil) 500 mg PO DAILY supplement 05/02/18 [History Last Taken 11/17/20] vit C 226 mg-vit E 90 mg-copper 0.8 mg-zinc oxide-lutein 5 mg capsule (PreserVision Lutein) 2 ea PO BID supplement 05/02/18 [History Last Taken 11/17/20] cranberry fruit 400 mg tablet 400 mg PO DAILY supplement 01/28/19 [History Last Taken 11/17/20] folic acid 1 mg tablet 0.8 mg PO DAILY 11/11/20 [History Last Taken 11/17/20] mirabegron 50 mg tablet,extended release 24 hr (Myrbetriq) 50 mg PO DAILY 11/11/20 [History Last Taken 11/17/20] ciprofloxacin HCl 500 mg tablet (Cipro) 500 mg PO BID ATB FOR 6 DAYS 11/18/20 [History Last Taken 11/18/20] Allergy/AdvReac Type Severity Reaction Status Date / Time aspirin AdvReac AVOID D/T Verified 01/29/22 16:28 METHOTREXATE Surgical History History of hernia repair History of parathyroid surgery History of surgery of liver Social History Smoking Status: Never smoker ROS ROS ED Review of Systems ROS Unobtainable: due to mental status EXAM Physical Exam Const Vital Signs: 01/29/22 16:22 01/29/22 16:33 01/29/22 16:38 Temperature 98.4 F Temperature Source Temporal Pulse Rate 129 H 117 H Respiratory Rate 20 H 16 Respiratory Effort Normal Non-Labored Respiratory Depth Normal Respiratory Pattern Normal Blood Pressure 176/105 H 185/85 H Blood Pressure Mean 128 118 Pulse Ox 96 99 Oxygen Delivery Method Room Air Mechanical Ventilator Fraction of Inspired Oxygen (FIO2) 100 01/29/22 16:20 01/29/22 16:51 01/29/22 16:53 Temperature Temperature Source Pulse Rate 125 H 98 Respiratory Rate 16 Respiratory Effort Respiratory Depth Respiratory Pattern Blood Pressure 190/112 H 156/95 H Blood Pressure Mean 138 115 Pulse Ox 95 99 100 Oxygen Delivery Method Room Air Mechanical Ventilator Mechanical Ventilator Fraction of Inspired Oxygen (FIO2) 100 100 01/29/22 16:33 01/29/22 17:08 01/29/22 17:12 Temperature Temperature Source Pulse Rate 127 H 100 85 Respiratory Rate 16 16 16 Respiratory Effort Respiratory Depth Respiratory Pattern Normal Blood Pressure 107/92 H 142/90 H Blood Pressure Mean 97 107 Pulse Ox 99 99 100 Oxygen Delivery Method Mechanical Ventilator Mechanical Ventilator Fraction of Inspired Oxygen (FIO2) 100 95 85 HEENT Reports dry mucous membranes atraumatic Mouth ED: Yes dry mucous membranes Mouth: dry mucous membranes Eyes General Eye ED: Negative for pale conjunctiva or scleral icterus Resp clear to auscultation bilaterally Resp Narrative: Tachypnea GI normal to inspection, nondistended, normoactive bowel sounds Neuro Sensorium / Orientation: alert and confused Psych Attitude: No agitated Skin General Skin Exam: Negative for jaundice NIHSS NIHSS Initial: 1a Level of Consciousness: 2 1b LOC Questions (Score 2 if aphasic/stupor): 1 1c LOC Commands (Only score 1st attempt): 2 2 Best Gaze (If aphasic, use reflexive mvmts.): 2 3 Visual: 0 4 Facial Palsy: 2 5 Motor Arm Right (UN = amputation/fusion): 4 5 Motor Arm Left: 2 6 Motor Leg Right: 4 6 Motor Leg Left: 3 7 Limb ataxia (Only + if out of proportion): 0 8 Sensory (Aphasia/stupor=0 or 1, coma=2): 2 9 Best Language: 3 10 Dysarthria (mute, coma=2, intubated=UN): 2 11 Extinction and Inattention (only scored if +): 1 Total Score: 30 MDM MDM MDM Narrative Medical decision making narrative: Patient seen and evaluated on arrival. Her blood sugar was over 100 for EMS. Last known well 3:20 PM. Patient is not anticoagulated per history. She is taken immediately to the CT scanner. Immediately was noticed that she has a large intraparenchymal hemorrhage with some midline shift. Denies stroke cells were 30. Med flight notified. I spoke with [facility] immediately and they recommended intubation and transfer. Patient intubated on first pass after RSI with 40 mg of rocuronium and 20 mg of etomidate. 7.0 ET tube at 21 at the lip. Good color change noted hourly. Sumas scope was utilized. Patient now on the ventilator. Spoke with radiology due to stroke alert. They agree with the interpretation and state that there is a degree of subfalcine herniation. Patient started on propofol drip. I discussed this with the who is now at the bedside. He is amenable to med flight and transfer for neurosurgery consult. He does state that if her heart or lungs. We should not do CPR. She does not want this. He is amenable to short-term intubation. I spoke with Dr. Eagle the neurosurgeon on-call at [facility] and he recommended no seizure prophylaxis. He recommended keeping her blood pressure under control to a systolic of less than 140. Patient initial blood pressure 176/105. Will reassess after we start propofol drip which will likely drop her blood pressure. Blood work is obtained. EKG on my interpretation shows sinus tachycardia with frequent PVCs. Heart rate is 102. Nonspecific ST-T changes however there is a lot of artifact on this EKG. chest x-ray on my interpretation shows no acute cardiopulmonary process. ET tube appears to be in place. OG tube in the stomach as well mitral rotation. CBC, BMP normal. PT/INR normal. High-sensitivity phone is 21. On reevaluation the patient's blood pressure has come down. His blood pressure initially systolically was about 111 after starting propofol. This has been adjusted and she is now 142/90. Med flight here to transport. Report given. Impression: 1. Acute hemorrhagic stroke 2. Altered mental status 3. Tachycardia Lab Data Attestation: I reviewed the patient's lab results. Labs: Laboratory Results - last 24 hr 01/29/22 01/29/22 01/29/22 16:25 16:25 16:25 WBC 4.4 RBC 4.45 Hgb 14.6 Hct 44.3 MCV 99.6 H MCH 32.8 H MCHC 33.0 RDW Std Deviation 53.4 H RDW Coeff of Luanne 14.6 Plt Count 170 MPV 11.5 Immature Gran % (Auto) 0.200 Neut % (Auto) 49.0 Lymph % (Auto) 31.7 [place] % (Auto) 12.5 H Eos % (Auto) 4.8 Baso % (Auto) 1.8 H Absolute Neuts (auto) 2.2 Absolute Lymphs (auto) 1.39 Nucleated RBC % 0 PT 13.6 INR 1.1 APTT 32.7 Sodium 144 Potassium 3.9 Chloride 108 H Carbon Dioxide 31.0 Anion Gap 5 BUN 16 Creatinine 0.65 Estim Creat Clear Calc 39.39 Est GFR (MDRD) Af Amer 114 Est GFR (MDRD) Non-Af 94 BUN/Creatinine Ratio 24.8 H Glucose 114 H Calcium 9.9 Troponin I High Sens 21 Radiography Diagnostic Testing: Clinical Impression(s) from Imaging Studies Brain CT 01/29/22 16:16 IMPRESSION: Large left frontoparietal intraparenchymal hemorrhage and subfalcine herniation Electronically Signed: Koby Berry MD at 16:34 EST Reading Location ID and State: [address] [place] [address] , Service support , ADDENDUM: 01/29/22 1652 IMPRESSION: Large left frontoparietal intraparenchymal hemorrhage and subfalcine herniation N.B. : The above Results were Read Back by Koby Berry MD to dr srini MD, and understanding confirmed on 01/29/2022 16:44:44 (ET). Electronically Signed: Koby Berry MD at 16:34 EST , Chest X-Ray 01/29/22 16:57 IMPRESSION: Life support apparatus as above. Subsegmental atelectasis left base. Electronically Signed: Koby Berry MD at 17:16 EST Reading Location ID and State: [facility] / [place] , Service support , Critical Care Time Critical Care Time: Yes Critical care time (excluding procedures): 30-74 minutes (35) Discharge Plan Triage Chief Complaint: Stroke Alert ED Provider: Matthew Apodaca Dx/Rx/DC Orders Prescriptions: No Action methotrexate sodium 2.5 MG tablet 6 tab PO FLORES Label Comments: TAKE 6 TABLETS BY MOUTH ONCE WEEKLY Rx Instructions: SUNDAYS PreserVision Lutein 1 EACH capsule 2 ea PO BID Calcium 600 + D(3) 1 EACH tablet 1 tab PO DAILY Fish Oil 500 MG capsule,delayed release(DR/EC) 500 mg PO DAILY cholecalciferol (vitamin D3) [Vitamin D3] 2,000 UNIT capsule 2,000 unit PO DAILY cranberry fruit 400 MG tablet 400 mg PO DAILY folic acid 1 mg Tablet 0.8 mg PO DAILY Myrbetriq 50 mg tablet extended release 24 hr 50 mg PO DAILY ciprofloxacin HCl [Cipro] 500 mg tablet 500 mg PO BID Label Comments: TAKE 1 TABLET BY MOUTH TWICE A DAY START THE DAY PRIOR TO PROCEDURE Rx Instructions: TAKE DAY OF PROCEDURE AND COMPLETE SCRIPT Primary Care Provider: Noemy Hoskins Referrals: Noemy Hoskins MD [Primary Care Provider] -
[2022-01-29] MEDS: Rocuronium Bromide 50 MG/5 ML Vial 40 MG IV (16:31)
[2022-01-29] MEDS: Etomidate 20 MG/10 ML Vial IV (16:31)
[2022-01-29] MEDS: Propofol 10MG/Ml 1,000 MG/100 ML Bottle 4.5 MG CONT INF (16:37)
[2022-01-29 16:41] LABS: Absolute Lymphocyte Count 1.39 X10^3/uL (0.83-4.51); Absolute Neutrophil Count 2.2 X10^3/uL (2.0-7.7); Basophil# 0.08 X10^3/uL; Basophil% 1.8 % (0-1); Eosinophil# 0.21 X10^3/uL; Eosinophils% 4.8 % (0-5); Hematocrit 44.3 % (37-47); Hemoglobin 14.6 g/dL (12.0-15.0); Lymphocyte # 1.39 X10^3/ul (0.83-4.51); Lymphocyte % 31.7 % (19-41); Mean Corpuscular Hgb 32.8 pg (27.0-32.0); Mean Corpuscular Volume 99.6 fL (81-99); Mean Platelet Vol. 11.5 fl (6.2-12.0); Monocyte# 0.55 X10^3/uL; Monocyte% 12.5 % (0-10); NRBC Flagged by Analyzer 0 % (0-5); Neutrophil # 2.15 X10^3/uL (2.7-7.7); Platelet Count 170 K/mm3 (150-450); RBC Distribution Width CV 14.6 % (11.6-14.6); RBC Distribution Width SD 53.4 fl (35.1-43.9); Red Blood Count 4.45 M/mm3 (4.2-5.4); White Blood Count 4.4 K/mm3 (4.4-11.0)
[2022-01-29 16:46] LABS: International Normalized Ratio 1.1; Prothrombin Time (Protime)PT. 13.6 SECONDS (11.7-14.9)
[2022-01-29 16:47] LABS: Partial Thromboplast Time 32.7 Seconds (24.1-36.2)
[2022-01-29 16:53] LABS: Anion Gap 5 (5-15); BUN 16 mg/dL (7-18); BUN/Creat Ratio 24.8 RATIO (10-20); Calcium,Total 9.9 mg/dL (8.5-10.1); Chloride 108 mmol/L (98-107); Creatinine, Serum 0.65 mg/dL (0.55-1.02); EST Glomerular Filtration Rate 94 mL/min (>60); Est Glom Filt Rate - Afr Amer 114 mL/min (>60); Estimated Creatinine Clearance 39.39 ml/min; Glucose 114 mg/dL (74-106); Potassium 3.9 mmol/L (3.5-5.1); Sodium Level 144 mmol/L (136-145); Troponin-I HS 21 pg/mL (3.0-54.0)
--- NOTE | 2022-01-29 16:57 | RAD_ITS ---
STUDY: X-RAY CHEST REASON FOR EXAM: Female, 81 years old. ETT PLACEMENT TECHNIQUE: Single frontal view of the chest. COMPARISON: July 18, 2019 FINDINGS: New ET tube 4 cm above the major. New enteric tube in the stomach. Subsegmental atelectasis left base. There is no demonstrated pleural abnormality. Normal size heart. Normal mediastinum and terri. Normal visualized pulmonary arteries. Normal visualized aortic arch and descending thoracic aorta. Normal visualized thoracic spine. Normal visualized ribs, clavicles, and shoulders. There is no demonstrated abnormality of the visualized soft tissue structures of the upper abdomen. RAD/Chest 1 View IMPRESSION: Life support apparatus as above. Subsegmental atelectasis left base. Electronically Signed: Koby Berry MD at 17:16 EST ,
[2022-01-29] MEDS: 0.9% Normal Saline 1,000 ML 150 ML IV (17:10)
== END 2022-01-29 17:40 | disposition short-term general hospital (02) ==
PROVIDERS: Emergency Provider Student in an Organized Health Care Education/Training Program; PCP Internal Medicine; Visit Provider Student in an Organized Health Care Education/Training Program
DX: I63.9 Cerebral infarction, unspecified (principal); R00.0 Tachycardia, unspecified; R47.81 Slurred speech
CPT/HCPCS: 51702; 31500; 70450; 71045; 80048; 84484; 85025; 85610; 85730; 93005; 94002; 99251; 99285; J7030; A4216; G0463